=== PATIENT | female | born 1955 | race Two or more races ===

== ENCOUNTER 2020-11-19 02:18 | Emergency (ER) | payer OTHER ==
[~2020-11-19] VITALS: Ht 167.6 cm; Wt 108.9 kg
[2020-11-19] MEDS ORDERED: DEXTROSE 50%-WATER 50 ML DISP.SYRIN ONE (02:26)
[2020-11-19] MEDS ORDERED: DEXTROSE 50%-WATER 50 ML DISP.SYRIN IVP ONE (02:30)
[2020-11-19 02:48] LABS: BASOPHILS % (AUTO) 0.9 % (0.0-2.0); EOSINOPHILS % (AUTO) 3.6 % (0.0-6.0); HEMATOCRIT 36 % (33-45); HEMOGLOBIN 11.5 g/dL (11.5-14.8); LYMPHOCYTES % (AUTO) 17.7 % (20.0-44.0); MEAN CORPUSCULAR HGB CONC 32 g/dl (31.0-36.0); MEAN CORPUSCULAR VOLUME 90 fL (82-100); MONOCYTES # (AUTO) 0.5 /CMM (0.1-1.30); MONOCYTES % (AUTO) 8.6 % (2.0-12.0); NEUTROPHILS # (AUTO) 3.8 /CMM (1.8-8.9); NEUTROPHILS % (AUTO) 69.2 % (43.0-81.0); PLATELET COUNT (AUTO) 136 /CMM (150-450); RED BLOOD CELL COUNT(AUTO) 3.95 MIL/uL (4.0-5.2); WHITE BLOOD COUNT (AUTO) 5.5 K/uL (4.3-11.0)
[2020-11-19 03:04] LABS: ALBUMIN 3.4 g/dL (3.4-5.0); BILIRUBIN,DIRECT 0.1 mg/dL (0.0-0.2); BILIRUBIN,TOTAL 0.8 mg/dL (0.2-1.0); CALCIUM, SERUM 7.9 mg/dL (8.5-10.1); CREATININE 6.6 mg/dL (0.6-1.3); POTASSIUM 5.7 mmol/L (3.5-5.1)
--- NOTE | 2020-11-19 04:34 | NUR ---
called [facility]; rescheduled dialysis seat time @5:20pm today; will call [facility] for transport
--- NOTE | 2020-11-19 04:55 | NUR ---
[id number] HOME. ETA WILL CALL BACK DIALYSIS TRANSPORT PU 1700 @HOME FOR 1720 APPOINTMENT. DAUGHTER CHRISTINA AWARE HOME ADDRESS [id number] [id number]
--- NOTE | 2020-11-19 05:02 | NUR ---
[facility]. 30MINS ETA
--- NOTE | 2020-11-19 05:39 | NUR ---
Pt left via private ambulance to home. left in stable condition, not in any distress, VSS. report given to staff
[2020-11-19 05:41] VITALS: BP 143/71
== END 2020-11-19 05:42 | disposition home or self-care (01) ==
LOC: ER 02:20
DX: E11.649 Type 2 diabetes mellitus with hypoglycemia without coma (principal); I12.0 Hypertensive chronic kidney disease with stage 5 chronic kidney disease or end stage renal disease; E11.22 Type 2 diabetes mellitus with diabetic chronic kidney disease; N18.6 End stage renal disease; J90 Pleural effusion, not elsewhere classified; Z99.2 Dependence on renal dialysis; Z98.890 Other specified postprocedural states; Z88.0 Allergy status to penicillin; Z91.013 Allergy to seafood
CPT/HCPCS: 36415; 71045-TC; 80048-TC; 80076-TC; 82962-TC; 83690-TC; 85025-TC

== ENCOUNTER 2021-01-05 13:45 | Emergency (ER) | payer OTHER ==
[~2021-01-05] VITALS: Ht 167.6 cm; Wt 114.8 kg
--- NOTE | 2021-01-05 14:00 | NUR ---
ALEXIS FROM HOME TO ER BED 7. AAOX4. NOT IN RESP DISTRESS, BREATHING EVEN AND UNLABORED AND ON 02 VIA NC @ 4LPM SATTING @ 97%. PT WAS BROUGHT IN FOR SOB. PT WAS NOTED SATTING @ 77% ON RA UPON EMS ARRIVAL. PT REPORTS TO BE ON O2 AT HOME BASELINE @ 2LPM. PT IS ON DIALYSIS AND REPORT IT FEELS THE SAME WHEN SHE HAVE FLUID IN HIS LUNGS. PT ON MONITOR. AWAITING MD FOR EVAL.
[2021-01-05 15:17] LABS: BASOPHILS % (AUTO) 0.7 % (0.0-2.0); EOSINOPHILS % (AUTO) 1.1 % (0.0-6.0); HEMATOCRIT 32 % (33-45); HEMOGLOBIN 10.4 g/dL (11.5-14.8); LYMPHOCYTES # (AUTO) 0.6 /CMM (0.8-4.8); LYMPHOCYTES % (AUTO) 10.8 % (20.0-44.0); MEAN CORPUSCULAR HGB CONC 32 g/dl (31.0-36.0); MEAN CORPUSCULAR VOLUME 92 fL (82-100); MONOCYTES # (AUTO) 0.3 /CMM (0.1-1.30); MONOCYTES % (AUTO) 4.6 % (2.0-12.0); NEUTROPHILS % (AUTO) 82.8 % (43.0-81.0); PLATELET COUNT (AUTO) 175 /CMM (150-450); RED BLOOD CELL COUNT(AUTO) 3.53 MIL/uL (4.0-5.2)
[2021-01-05 15:26] LABS: CALCIUM, SERUM 8.3 mg/dL (8.5-10.1); CARBON DIOXIDE 26 mmol/L (21-32); CHLORIDE 105 mmol/L (98-107); CREATININE 5.3 mg/dL (0.6-1.3); GLUCOSE 155 mg/dL (74-106); POTASSIUM 5.6 mmol/L (3.5-5.1); SODIUM SERUM 140 mmol/L (136-145); UREA NITROGEN, BLOOD 22 mg/dL (7-18)
[2021-01-05 15:32] LABS: ALANINE AMINOTRANSFERASE 7 U/L (12-78); ALBUMIN 3.6 g/dL (3.4-5.0); ALKALINE PHOSPHATASE 71 U/L (46-116); ASPARTATE AMINOTRANSFERASE 12 U/L (15-37); BILIRUBIN,DIRECT 0.1 mg/dL (0.0-0.2); BILIRUBIN,TOTAL 0.8 mg/dL (0.2-1.0); TOTAL PROTEIN, SERUM 7.2 g/dL (6.4-8.2)
[2021-01-05] MEDS ORDERED: LEVO200T8 PO (15:40)
[2021-01-05] MEDS ORDERED: PROP20TA19 PO (15:40)
[2021-01-05] MEDS ORDERED: INSU100I4 SQ (15:40)
[2021-01-05] MEDS ORDERED: CHOL200013 PO (15:40)
[2021-01-05] MEDS ORDERED: INSU100I26 SQ (15:40)
[2021-01-05] MEDS ORDERED: AMLO-213 PO (15:40)
[2021-01-05] MEDS ORDERED: CARB1TAB21 PO (15:40)
--- NOTE | 2021-01-05 16:21 | NUR ---
Patient discharged to home in stable condition. Written and verbal after care instructions given. Patient verbalizes understanding of instruction.IV removed. Catheter intact and site benign. Pressure and 4x4 applied to site. No bleeding noted. Pt ambulatory with a steady gait
[2021-01-05 16:46] VITALS: BP 172/91
== END 2021-01-05 16:21 | disposition home or self-care (01) ==
LOC: ER 13:47
DX: J90 Pleural effusion, not elsewhere classified (principal); I12.0 Hypertensive chronic kidney disease with stage 5 chronic kidney disease or end stage renal disease; E11.22 Type 2 diabetes mellitus with diabetic chronic kidney disease; N18.6 End stage renal disease; E89.0 Postprocedural hypothyroidism; Z99.2 Dependence on renal dialysis; Z88.0 Allergy status to penicillin; Z91.013 Allergy to seafood; Z79.4 Long term (current) use of insulin; Z79.899 Other long term (current) drug therapy
CPT/HCPCS: 36415; 71045-TC; 80048-TC; 80076-TC; 84484-TC; 85025-TC; 85730-TC

== ENCOUNTER 2021-04-03 10:08 | Emergency (ER) | payer MEDICARE, OTHER ==
[~2021-04-03] VITALS: Ht 172.7 cm; Wt 102.1 kg
[~2021-04-03 10:08] MED LIST: AMLO-213 PO; CARB1TAB21 PO; CHOL200013 PO; INSU100I26 SQ; INSU100I4 SQ; LEVO200T8 PO; PROP20TA19 PO
--- NOTE | 2021-04-03 10:45 | NUR ---
[id number] [facility] SNF FOR NOTED HYPERTENSION S/P DIALYSIS. ALERT TO SELF. ON ROOM AIR, O SOB RESPIRATIONS EVEN AND UNLABORED NO DISTRESS NOTED. PATIENT ATTACHED TO MONITOR AND WILL CONTINUE TO MONITOR, WARM BLANKET PROVIDED.
[2021-04-03 10:57] LABS: BASOPHILS # (AUTO) 0.1 K/uL (0.0-0.2); BASOPHILS % (AUTO) 0.8 % (0.0-2.0); EOSINOPHILS % (AUTO) 2.1 % (0.0-6.0); HEMATOCRIT 21 % (33-45); LYMPHOCYTES % (AUTO) 8.1 % (20.0-44.0); MEAN CORPUSCULAR HGB CONC 32 g/dl (31.0-36.0); MEAN CORPUSCULAR VOLUME 88 fL (82-100); MONOCYTES # (AUTO) 0.8 K/uL (0.1-1.30); MONOCYTES % (AUTO) 6.5 % (2.0-12.0); NEUTROPHILS # (AUTO) 9.9 K/uL (1.8-8.9); NEUTROPHILS % (AUTO) 82.5 % (43.0-81.0); PLATELET COUNT (AUTO) 268 K/uL (150-450); RED BLOOD CELL COUNT(AUTO) 2.41 MIL/uL (4.0-5.2)
[2021-04-03 10:58] LABS: CARBON DIOXIDE 30 mmol/L (21-32); CHLORIDE 99 mmol/L (98-107); CREATININE 2.4 mg/dL (0.6-1.3); GLUCOSE 152 mg/dL (74-106); POTASSIUM 3.8 mmol/L (3.5-5.1); SODIUM SERUM 135 mmol/L (136-145); UREA NITROGEN, BLOOD 34 mg/dL (7-18)
[2021-04-03 11:00] LABS: HEMOGLOBIN 6.9 g/dL (11.5-14.8)
[2021-04-03 11:03] LABS: ALBUMIN 1.5 g/dL (3.4-5.0); ALKALINE PHOSPHATASE 120 U/L (46-116); ASPARTATE AMINOTRANSFERASE 29 U/L (15-37); BILIRUBIN,DIRECT 0.1 mg/dL (0.0-0.2); BILIRUBIN,TOTAL 0.4 mg/dL (0.2-1.0); TOTAL PROTEIN, SERUM 6.4 g/dL (6.4-8.2)
--- NOTE | 2021-04-03 11:14 | NUR ---
PER NURSE MONTANEZ FROM [facility] THE PATIENT`S LAST HGB WAS 8.1 OF 03/26/21. DR CRAMER AWARE. Addendum: 04/03/21 at 1116 by MICHAEL ASKED THE NURSE TO FAX THE COPY
--- NOTE | 2021-04-03 11:18 | NUR ---
THE PATIENT`S NEPHRO MD IS DR COHN [phone]
--- NOTE | 2021-04-03 11:22 | NUR ---
PAGED DR COHN
[2021-04-03 11:27] LABS: ALANINE AMINOTRANSFERASE < 6 U/L (12-78)
[2021-04-03 11:37] LABS: LYMPHOCYTES % (MANUAL) 8 % (16-48); MONOCYTES % (MANUAL) 7 % (0-11.0); NEUTROPHILS % (MANUAL) 85 (42-76)
--- NOTE | 2021-04-03 16:00 | NUR ---
STARTED BLOOD TRANSFUSION PER POLICY AND ORDER
--- NOTE | 2021-04-03 16:01 | NUR ---
THE PATIENT IS TOLERATED BLOOD TRANSFUSION WELL. NO ADVERSE SIDE REACTIONS NOTED. WILL CONTINUE TO MONITOR THE PATIENT.
--- NOTE | 2021-04-03 19:01 | NUR ---
BLOOD TRANSFUSION COMPLETE WITH NO ADVERSE REACTIONS NOTED. Addendum: 04/03/[address] GENNY CORADO
--- NOTE | 2021-04-03 20:06 | NUR ---
[facility] ETA 2100
[2021-04-03] MEDS ORDERED: LABETALOL HCL (100MG) 100 MG TABLET ONE (20:18)
--- NOTE | 2021-04-03 20:22 | NUR ---
SPOKE TO NURSE ALIE SNELL FROM [facility] REGARDING PT BEING TRANSFERED BACK TO FACILITY.
[2021-04-03] MEDS ORDERED: LABETALOL HCL (100MG) 100 MG TABLET GT ONE (20:30)
--- NOTE | 2021-04-03 21:12 | NUR ---
Lalita rebolledo in [facility] - 04/03/21 at 2234 by TITA REPORT GIVEN TO EMT, PT WILL BE TRANSFERED BACK TO FACILITY.
--- NOTE | 2021-04-03 21:22 | NUR ---
[facility] CALLED FOR TRANSPORT. ETA 90 MINUTES.
--- NOTE | 2021-04-03 22:31 | NUR ---
REPORT GIVEN TO EMT, PT TRANSFERED BACK TO FACILITY.
[2021-04-03 22:34] VITALS: BP 143/79
== END 2021-04-03 22:35 ==
LOC: ER 10:20
DX: I12.0 Hypertensive chronic kidney disease with stage 5 chronic kidney disease or end stage renal disease (principal); E11.22 Type 2 diabetes mellitus with diabetic chronic kidney disease; N18.6 End stage renal disease; D63.1 Anemia in chronic kidney disease; G20 Parkinson's disease; E89.0 Postprocedural hypothyroidism; Z99.2 Dependence on renal dialysis; Z88.0 Allergy status to penicillin; Z91.013 Allergy to seafood; Z79.899 Other long term (current) drug therapy; Z79.4 Long term (current) use of insulin
CPT/HCPCS: 36415; 36430; 70450; 71045; 80048; 80076; 84484; 85007; 85025; 86850; 86923; 93005; 99285; J7050; P9016

== ENCOUNTER 2021-04-08 17:04 | Inpatient (IN) | payer MEDICARE, OTHER ==
[~2021-04-08] VITALS: Ht 172.7 cm; Wt 98.0 kg
[~2021-04-08 17:04] MED LIST changes: +AMLO-213 GT; -AMLO-213 PO; +CARB1TAB21 GT; -CARB1TAB21 PO; +LEVO200T8 GT; -LEVO200T8 PO
--- NOTE | 2021-04-08 17:22 | NUR ---
Note undone in EDM - 04/08/21 at 1852 by MICHAEL The patient is irene, from [facility], sent by PMD low h/h 6.8/20.3. The patient is responsive to tactile stimuli and per report from ambulance staff that is the patient`s baseline mental status. The patient in room air. Respiration regular and unlabored. No manifestation of pain noted. GT present. The patient is attached to monitor. Will continue to monitor the patient.
--- NOTE | 2021-04-08 17:22 | NUR ---
The patient is bibpa, from snf, sent by PMD low h/h 6.8/20.3. The patient is responsive to tactile stimuli and per report from ambulance staff that is the patient`s baseline mental status. The patient is receiving oxygen at 3.5L/min via nasal cannula. Respiration regular and unlabored. No manifestation of pain noted. GT present. The patient is attached to monitor. Will continue to monitor the patient.
[2021-04-08 17:50] LABS: BASOPHILS # (AUTO) 0.2 K/uL (0.0-0.2); BASOPHILS % (AUTO) 1.3 % (0.0-2.0); EOSINOPHILS % (AUTO) 2.8 % (0.0-6.0); HEMATOCRIT 23 % (33-45); HEMOGLOBIN 7.6 g/dL (11.5-14.8); LYMPHOCYTES # (AUTO) 1.3 K/uL (0.8-4.8); MEAN CORPUSCULAR HGB CONC 33 g/dl (31.0-36.0); MEAN CORPUSCULAR VOLUME 90 fL (82-100); MONOCYTES # (AUTO) 0.7 K/uL (0.1-1.30); MONOCYTES % (AUTO) 5.1 % (2.0-12.0); NEUTROPHILS # (AUTO) 11.7 K/uL (1.8-8.9); NEUTROPHILS % (AUTO) 81.8 % (43.0-81.0); PLATELET COUNT (AUTO) 252 K/uL (150-450); RED BLOOD CELL COUNT(AUTO) 2.55 MIL/uL (4.0-5.2); WHITE BLOOD COUNT (AUTO) 14.3 K/uL (4.3-11.0)
[2021-04-08] MEDS ORDERED: VALP250S22 GT (17:54)
[2021-04-08] MEDS ORDERED: LISI40TA13 GT (17:54)
[2021-04-08] MEDS ORDERED: COLL30OI TP (17:54)
[2021-04-08] MEDS ORDERED: ZINC1CAP3 GT (17:54)
[2021-04-08] MEDS ORDERED: AMIN30LI27 GT (17:54)
[2021-04-08] MEDS ORDERED: INSU100V27 SQ (17:54)
[2021-04-08] MEDS ORDERED: ACET-868 GT ×2 (17:54)
[2021-04-08] MEDS ORDERED: LINA5TAB GT (17:54)
[2021-04-08] MEDS ORDERED: CALC0.258 GT (17:54)
[2021-04-08] MEDS ORDERED: TRIH2TAB3 GT (17:54)
[2021-04-08] MEDS ORDERED: BROM2.5T15 GT (17:54)
[2021-04-08] MEDS ORDERED: PHEN125O9 GT (17:54)
[2021-04-08] MEDS ORDERED: HEPA50007 SQ (17:54)
[2021-04-08] MEDS ORDERED: NIFE30TA91 GT (17:54)
[2021-04-08] MEDS ORDERED: LIOT5TAB7 GT (17:54)
[2021-04-08] MEDS ORDERED: POLY17PO4 GT (17:54)
[2021-04-08] MEDS ORDERED: CLON0.2T GT (17:54)
[2021-04-08] MEDS ORDERED: ASCO-352 GT (17:54)
[2021-04-08] MEDS ORDERED: NUT.237L67 GT (17:54)
[2021-04-08] MEDS ORDERED: ATOR10TA GT (17:54)
[2021-04-08] MEDS ORDERED: LABE300T2 GT (17:54)
[2021-04-08] MEDS ORDERED: BISA10SU11 RC (17:54)
[2021-04-08] MEDS ORDERED: MINO2.5T GT (17:54)
[2021-04-08] MEDS ORDERED: HYDR-4303 GT (17:54)
[2021-04-08] MEDS ORDERED: CALC-903 GT (17:54)
[2021-04-08] MEDS ORDERED: MULT-447 PO (17:54)
[2021-04-08] MEDS ORDERED: SENN-261 GT (17:54)
[2021-04-08 18:23] LABS: CALCIUM, SERUM 8.3 mg/dL (8.5-10.1); CREATININE 2.4 mg/dL (0.6-1.3)
[2021-04-08 18:38] LABS: ALBUMIN 1.7 g/dL (3.4-5.0); BILIRUBIN,DIRECT 0.1 mg/dL (0.0-0.2); BILIRUBIN,TOTAL 0.4 mg/dL (0.2-1.0); TOTAL PROTEIN, SERUM 6.8 g/dL (6.4-8.2)
--- NOTE | 2021-04-08 18:53 | NUR ---
THE PATIENT`S OXYGEN SATURATION IN ROOM AIR IS AT 85%. SO IN ORDER TO MAINTAIN OXYGEN SATURATION WNL THE PATIENT IS KEPT ON OXYGEN AT 3.5L/MIN VIA NASAL CANNULA.
--- NOTE | 2021-04-08 19:20 | NUR ---
PER PATIENT DTR CHRISTINA CRUZ OVER PHONE CONSENT FOR BLOOD TRANSFUISON.
--- NOTE | 2021-04-08 19:55 | NUR ---
BLOOD TRANSFUSION STARTED. PATIENT VSS, PATIENT CONNECTED TO MONITORS.
--- NOTE | 2021-04-08 20:49 | NUR ---
tele 120
[2021-04-08] MEDS ORDERED: MAG HYDROX/AL HYDROX/SIMETH 30 ML UDC PO PRN (21:00)
[2021-04-08] MEDS ORDERED: Z GUARD REMEDY 2 OZ OINT TP PRN (21:00)
[2021-04-08] MEDS ORDERED: ONDANSETRON HCL/PF 4 MG/2 ML VIAL IVP PRN (21:00)
[2021-04-08] MEDS ORDERED: ACETAMINOPHEN 325 MG TABLET PO PRN (21:00)
[2021-04-08] MEDS ORDERED: ZOLPIDEM TARTRATE 5 MG TABLET PO PRN (21:00)
[2021-04-08] MEDS ORDERED: MAGNESIUM HYDROXIDE 30 ML UDC PO PRN (21:00)
--- NOTE | 2021-04-08 21:00 | NUR ---
REPORT GIVEN TO EDISNO RADER. WILL TRANSPORT PT VIA ACLS PROTOCOL.
[2021-04-08 21:20] VITALS: BP 113/42
--- NOTE | 2021-04-08 21:33 | NUR ---
PATIENT TRANSFERRED UNDER ACLS
[2021-04-08 22:50] VITALS: BP 127/40
--- NOTE | 2021-04-08 22:50 | NUR ---
S/P BLOOD TRANSFUSION, ENDED AT THIS TIME. NO ADVERSE EFFECTS NOTED. VITAL SIGNS STABLE. CALL LIGHT WITHIN REACH.
[2021-04-09] VITALS: BP 149/63
--- NOTE | 2021-04-09 01:23 | NUR ---
ADMIT NOTE RECEIVED PATIENT FROM ER, TRANSFERRED TO ROOM 120-2. PATIENT IS ALERT AND ORIENTED X1-2, LETHARGIC. EASILY AROUSED. ON O2 3L VIA NASAL CANNULA, O2 SAT 100%. NO SIGNS OF ANY ACUTE RESPIRATORY DISTRESS. DENIES ANY PAIN AT THIS TIME. ONGOING 1 UNIT BLOOD TRANSFUSION, IV ACCESS RIGHT WRIST # 20 PATENT AND INTACT. NO SIGNS OF INFILTRATION. WITH G-TUBE, CLAMPED AT THIS TIME, POSITIVE PLACEMENT VIA AUSCULTATION. SKIN ASSESSMENT DONE, NOTED WITH SACRAL EXCORIATION, OLD WOUNDS/SCABS ON RIGHT AND LEFT GROIN, BILATERAL HEEL REDNESS. DIALYSIS SITE ON RIGHT UPPER CHEST WALL, DRESSING DRY AND INTACT. BED LOCKED AND IN LOWEST POSITION. CALL LIGHT WITHIN REACH. ALL NEEDS ANTICIPATED. Addendum: 04/09/21 at 0128 by TERESA BARRON RN PATIENT ADMITTED AT 2120 04/08/21
[2021-04-09 04:00] VITALS: BP 121/83
[2021-04-09] MEDS ORDERED: NEPRO 1,000 ML BOTTLE GT PRN (05:30)
--- NOTE | 2021-04-09 06:58 | NUR ---
RN NOTE PATIENT RESTING IN BED. ON 3L VIA NASAL CANNULA, O2 SAT 96%. NO SOB NOTED. TURNED AND REPOSITIONED. KEPT CLEAN AND DRY. SAFETY MEASURES MAINTAINED. CALL LIGHT WITHIN REACH. WILL ENDORSE TO AM SHIFT.
[2021-04-09 07:20] LABS: CALCIUM, SERUM 8.3 mg/dL (8.5-10.1); MAGNESIUM 2.4 mg/dL (1.8-2.4); PHOSPHORUS 2.3 mg/dL (2.5-4.9); POTASSIUM 4.1 mmol/L (3.5-5.1)
[2021-04-09] MEDS ORDERED: PANTOPRAZOLE 40 MG TABLET.DR PO SCH (07:30)
--- NOTE | 2021-04-09 07:30 | NUR ---
RN NOTE PT FOUND IN SEMI FOWLERS POSITION DISPLAYING NO S/S OF ACUTE DISTRESS, PT IS BREATHING EVEN AND UNLABORED ON 3L NC O2 AND FLACC = 0. PT IS CONFUSED, A&OX1-2. SR ON THE MONITOR. R WRIST 20G, IV PATIENT AND INTACT. HOSPITAL SAFETY IN PLACE, BED LOCKED AND IN LOWEST POSITION, SIDE RAILS UPX3, CALL LIGHT WITHIN REACH, BED ALARM ARMED.
[2021-04-09 07:36] LABS: THYROID STIMULATING HORMONE 55.417 uIU/mL (0.358-3.74)
[2021-04-09 08:00] VITALS: BP 100/41
[2021-04-09 08:28] LABS: BASOPHILS # (AUTO) 0.2 K/uL (0.0-0.2); BASOPHILS % (AUTO) 1.4 % (0.0-2.0); EOSINOPHILS % (AUTO) 2.9 % (0.0-6.0); HEMATOCRIT 26 % (33-45); HEMOGLOBIN 8.7 g/dL (11.5-14.8); LYMPHOCYTES # (AUTO) 1.5 K/uL (0.8-4.8); LYMPHOCYTES % (AUTO) 8.5 % (20.0-44.0); MEAN CORPUSCULAR HGB CONC 33 g/dl (31.0-36.0); MEAN CORPUSCULAR VOLUME 91 fL (82-100); MONOCYTES % (AUTO) 5.6 % (2.0-12.0); NEUTROPHILS % (AUTO) 81.6 % (43.0-81.0); PLATELET COUNT (AUTO) 283 K/uL (150-450); RED BLOOD CELL COUNT(AUTO) 2.87 MIL/uL (4.0-5.2); WHITE BLOOD COUNT (AUTO) 17.2 K/uL (4.3-11.0)
[2021-04-09] MEDS: PROSOURCE / PROSTAT (PYXIS) 30 ML UDC GT SCH ×2 (10:30→17:00)
--- NOTE | 2021-04-09 10:53 | NUR ---
RN NOTE OKAY PER [employer]GY LABORATORY TECHNICIAN SHANNON ZAYAS TO HOLD GTUBE FEEDING AND GTUBE MEDICATIONS DUE TO GTUBE LEAKING.
--- NOTE | 2021-04-09 11:42 | NUR ---
WOUND CARE CONSULT: REVIEWED CHART, NURSING DOCUMENTATION AND PHOTOS WHICH INDICATE SACRAL WOUND, PRESENT ON ADMISSION. DR BEJARANO NOTIFIED OF SURGICAL CONSULT. PT IS ON BARBARA ISOFLEX LOW AIRLOSS BED. ALL SKIN PROTECTION RECOMMENDATIONS DISCUSSED WITH NURSING STAFF. MD IN AGREEMENT WITH PLAN OF CARE.
[2021-04-09 12:00] VITALS: BP 105/52
[2021-04-09] MEDS ORDERED: Sodium Phosphate 15 MMOL in IV NS 0.9% 250 ML IV SCH (13:30)
[2021-04-09] MEDS: PANTOPRAZOLE 40 MG VIAL IV SCH (14:17)
[2021-04-09] MEDS ORDERED: Sodium Phosphate 15 MMOL in IV NS 0.9% 250 ML IV ONE (14:19)
[2021-04-09] MEDS ORDERED: VANCOMYCIN 500 MG in IV D5W 100 ML IV PRN (14:30)
[2021-04-09] MEDS ORDERED: DIATR MEGLU/DIATRIZOATE SODIUM 30 ML BOTTLE (GASTROGRAPHIN) ONE (14:37)
[2021-04-09] MEDS ORDERED: VANCOMYCIN 1.25 GM in IV D5W 250 ML IV ONE (15:00)
[2021-04-09 16:00] VITALS: BP 114/59
[2021-04-09 16:25] LABS: BILIRUBIN,URINE SMALL (NEGATIVE); COLOR,URINE DARK YELLOW (YELLOW); LEUKOCYTE ESTERASE ,URINE TRACE (NEGATIVE); NITRITE, URINE POSITIVE (NEGATIVE); PROTEIN,URINE >=300 mg/dl (NEGATIVE); UGLUCOSE 100 MG/DL mg/dL (NEGATIVE)
[2021-04-09 16:37] LABS: BACTERIA,URINE Many /HPF (None Seen); SQUAMOUS EPITHELIAL CELL,UR Moderate /HPF (None Seen); URINE AMORPHOUS URATE Many /HPF (None Seen)
[2021-04-09 17:10] LABS: CREATININE, URINE 83.1 MG/DL (30.0-125.0); URINE TOTAL PROTEIN 671.8 mg/dL (0-11.9)
[2021-04-09] MEDS: CEFEPIME 1 GM in IV D5W 50 ML IV SCH (17:27)
[2021-04-09] MEDS ORDERED: LEVOTHYROXINE SODIUM 100 MCG TABLET PO SCH (17:30)
[2021-04-09] MEDS ORDERED: EPOETIN ALFA-EPBX 4,000 UNIT/ML VIAL IV PRN (17:30)
--- NOTE | 2021-04-09 19:15 | NUR ---
RN NOTE PT FOUND SEMI FOWLERS POSITION DISPLAYING NO S/S OF DISTRESS, FLACC = 0 AND IS BREATHING EVEN AND UNLABORED ON 2L O2 NC. PT IS A&OX1, SR W/ PVC ON THE MONITOR. R WRIST 20G PATIENT AND INTACT. SAFETY MEASURES IN PLACE, BED LOCKED AND IN LOWEST POSITION, SIDE RAILS UPX3, CALL LIGHT WITHIN REACH, BED ALARM ARMED. BARREL LOADER AND CLEANER RN GIVEN SBAR, ALL QUESTIONS ANSWERED.
--- NOTE | 2021-04-09 19:30 | NUR ---
RN OPENING NOTE PATIENT IN BED, EYES OPEN. PATIENT IS SLOW TO RESPOND, A/O X 1. PATIENT HAS A G TUBE PRESENT, CLAMPED D/T GT BEING INFECTED. PER ANSELMO RN, PATIENT IS NPO AND GT TO REMAIN CLAMPED. PATIENT HAS A PERMACATH ON THE R CHEST WALL FOR HD AND HAS A R WRIST 20 G SALINE LOCKED. PATIENT ON 3 L OF O2 VIA NC, TOLERATES WELL, BREATHING EVEN AND UNLABORED. SAFETY MEASURES IN PLACE: BED LOCKED AND IN LOWEST POSITION, CALL LIGHT WITHIN REACH, SIDE RAILS UP. WILL MONITOR PATIENT CLOSELY.
[2021-04-09 20:00] VITALS: BP 136/45
--- NOTE | 2021-04-09 21:10 | NUR ---
RN NOTE SPOKE WITH DR. MUSA REGARDING PATIENT'S NPO STATUS AND PATIENT DID NOT HAVE ACCUCHECK ORDERED, HX DM, WELL MED RECON CONVERTED. ALSO ASKED ABOUT HAVING PATIENT ON FLUID AND INFORMED OF PATIENT'S DIALYSIS AND CHF HX. MD ORDERED ACCUCHECK Q6HR AND MONITOR PATIENT OFF FLUID. FOR MED RECON, STATES THAT IT WOULD HAVE TO BE FOLLOWED UP WITH AM TEAM.
[2021-04-09] MEDS ORDERED: DEXTROSE 50%-WATER 50 ML DISP.SYRIN IV PRN (21:30)
[2021-04-09] MEDS: BLOOD SUGAR DIAGNOSTIC 1 EACH STRIP IN SCH (23:50)
--- NOTE | 2021-04-09 23:51 | NUR ---
RN NOTE BS 120 MG/DL. NO COVERAGE GIVEN, PATIENT NPO. WILL CONTINUE TO MONITOR FOR HYPOGLYCEMIA.
[2021-04-10] VITALS: BP 105/57
[2021-04-10 04:00] VITALS: BP 145/60
[2021-04-10] MEDS: BLOOD SUGAR DIAGNOSTIC 1 EACH STRIP IN SCH ×3 (05:45→17:19)
--- NOTE | 2021-04-10 05:45 | NUR ---
RN NOTE BS 132 MG/DL. NO COVERAGE GIVEN, PATIENT NPO. WILL CONTINUE TO MONITOR FOR HYPOGLYCEMIA.
--- NOTE | 2021-04-10 06:59 | NUR ---
RN CLOSING NOTE PATIENT IN BED, EYES CLOSED. PATIENT IS A/O X 1-2. PATIENT HAS SLOW RESPONSES WHEN SPEAKING WITH. STILL ON 3 L OF 02 VIA NC. PATIENT'S G TUBE REMAINED CLAMPED, G TUBE DRESSING CHANGED. TELE MONITOR READS SR 88 WITH PVCS. PATIENT HAS NO URINE OUTPUT, ANURIC. SAFETY MEASURES IMPLEMENTED. ALL ORDERS CARRIED OUT, ALL NEEDS MET AND ATTENDED. R WRIST 20 G SALINE LOCKED. WILL ENDORSE TO DAY SHIFT NURSE FOR ADEEL.
[2021-04-10 07:29] LABS: BASOPHILS # (AUTO) 0.1 K/uL (0.0-0.2); BASOPHILS % (AUTO) 0.9 % (0.0-2.0); HEMATOCRIT 24 % (33-45); HEMOGLOBIN 8.1 g/dL (11.5-14.8); LYMPHOCYTES # (AUTO) 1.2 K/uL (0.8-4.8); LYMPHOCYTES % (AUTO) 11.6 % (20.0-44.0); MEAN CORPUSCULAR HGB CONC 34 g/dl (31.0-36.0); MEAN CORPUSCULAR VOLUME 91 fL (82-100); MONOCYTES # (AUTO) 0.7 K/uL (0.1-1.30); MONOCYTES % (AUTO) 6.4 % (2.0-12.0); NEUTROPHILS # (AUTO) 7.8 K/uL (1.8-8.9); NEUTROPHILS % (AUTO) 76.1 % (43.0-81.0); PLATELET COUNT (AUTO) 235 K/uL (150-450); WHITE BLOOD COUNT (AUTO) 10.3 K/uL (4.3-11.0)
[2021-04-10 07:32] LABS: CALCIUM, SERUM 7.9 mg/dL (8.5-10.1); CREATININE 3.8 mg/dL (0.6-1.3)
[2021-04-10 07:38] LABS: MAGNESIUM 2.5 mg/dL (1.8-2.4); PHOSPHORUS 2.3 mg/dL (2.5-4.9)
[2021-04-10 08:00] VITALS: BP 115/47
[2021-04-10] MEDS: PROSOURCE / PROSTAT (PYXIS) 30 ML UDC GT SCH ×2 (09:00→17:16)
--- NOTE | 2021-04-10 09:14 | NUR ---
RN NOTE GT IS CLAMPED DUE TO LEAKING - DID NOT ADMINISTER PROSTAT
[2021-04-10] MEDS: LEVOTHYROXINE INJ 100 MCG VIAL IV SCH (09:16)
[2021-04-10 12:19] VITALS: BP 161/70
[2021-04-10] MEDS: PANTOPRAZOLE 40 MG VIAL IV SCH (14:00)
--- NOTE | 2021-04-10 14:00 | NUR ---
PATIENT POOR PERIPHERAL IV AWAITS MIDLINE PER MD.
[2021-04-10 16:00] VITALS: BP 146/89
[2021-04-10] MEDS ORDERED: Sodium Phosphate 30 MMOL in IV NS 0.9% 250 ML IV ONE (16:30)
[2021-04-10] MEDS: CEFEPIME 1 GM in IV D5W 50 ML IV SCH (17:19)
--- NOTE | 2021-04-10 19:40 | NUR ---
RN NOTE PT RECEIVED IN BED. PT IS ON 3L OF O2 VIA NC SHOWING NO S/S OF RESP DISTRESS. PT IS A&OX1-2. PT ON TELE MONITOR SHOWING NSR WITH PVC'S. G-TUBE FEEDING RUNNING NEPRO @ 10CC/HR WITH TRICKLE DOSE TO SEE IF PATIENT CAN TOLERATE. LEFT UPPER ARM MIDLINE NOTED. FLUSHED, PATENT, AND INTACT WITH NO SIGNS OF INFILTRATION. ALL SAFETY MEASURES IMPLEMENTED. CALL LIGHT WITHIN REACH. BED ALARM ON. BED LOCKED AND IN LOWEST POSITION. WILL CONTINUE TO MONITOR THROUGHOUT THE SHIFT.
--- NOTE | 2021-04-10 19:45 | NUR ---
NETWORK SECURITY CONSULTANT CLOSING NOTE PATIENT CURRENTLY LYING IN BED, AWAKE. PATIENT IS A/O X 2-3. ORIENTED MUCH MORE THAN THIS MORNING - WAS ABLE TO FULLY CONVERSATE WITH ME. ON 3 L OXYGEN VIA NASAL CANNULA. GTUBE WOUND NOTED - GAUZE DRESSING CHANGED. TF RUNNING NEPRO @ 10CC/HR WITH TRICKLE DOSE TO SEE IF PATIENT CAN TOLERATE. TELE MONITOR READS SR WITH PVCS. PATIENT IS ANURIC. SAFETY MEASURES IN PLACE. CALL LIGHT WITHIN REACH. WILL ENDORSE TO BUCKLE STAPLER NURSE FOR ADEEL.
[2021-04-10 20:00] VITALS: BP 145/74
--- NOTE | 2021-04-10 20:53 | NUR ---
RN NOTE PT RECEIVED DIALYSIS DURING MORNING SHIFT. VANCOMYCIN NOT GIVEN. COSMETIC DENTIST JEYSON AND SAGE MADE AWARE. OK TO GIVE.
[2021-04-11] VITALS: BP 140/74
[2021-04-11] MEDS: BLOOD SUGAR DIAGNOSTIC 1 EACH STRIP IN SCH ×4 (00:38→18:27)
[2021-04-11 04:00] VITALS: BP 104/49
--- NOTE | 2021-04-11 06:48 | NUR ---
RN NOTE NO CHANGES IN PT CONDITION DURING SHIFT. PT IS ON 3L OF VIA NC SHOWING NO S/S OF RESP DISTRESS. PT IS CURRENTLY A&OX1-2. SACRAL WOUND NOTED. NEPRO RUNNING AT 10 ML/HR. LEFT UPPER ARM MID LINE NOTED. FLUSHED, PATENT, AND INTACT WITH NO INFILTRATION. ALL DUE MEDS GIVEN ORDERED. PT KEPT CLEAN AND COMFORTABLE. ALL SAFETY MEASURES IMPLEMENTED. CALL LIGHT WITHIN REACH. BED LOCKED AND IN LOWEST POSITION. BED ALARM ON. WILL ENDORSE TO MORNING SHIFT RN FOR ADEEL.
[2021-04-11 07:09] LABS: BASOPHILS # (AUTO) 0.1 K/uL (0.0-0.2); BASOPHILS % (AUTO) 1.2 % (0.0-2.0); EOSINOPHILS % (AUTO) 5.4 % (0.0-6.0); HEMATOCRIT 25 % (33-45); HEMOGLOBIN 8.5 g/dL (11.5-14.8); LYMPHOCYTES # (AUTO) 1.1 K/uL (0.8-4.8); LYMPHOCYTES % (AUTO) 12.3 % (20.0-44.0); MEAN CORPUSCULAR HGB CONC 34 g/dl (31.0-36.0); MEAN CORPUSCULAR VOLUME 92 fL (82-100); MONOCYTES # (AUTO) 0.6 K/uL (0.1-1.30); MONOCYTES % (AUTO) 7.1 % (2.0-12.0); NEUTROPHILS # (AUTO) 6.5 K/uL (1.8-8.9); PLATELET COUNT (AUTO) 219 K/uL (150-450); RED BLOOD CELL COUNT(AUTO) 2.75 MIL/uL (4.0-5.2); WHITE BLOOD COUNT (AUTO) 8.8 K/uL (4.3-11.0)
[2021-04-11 07:16] LABS: CALCIUM, SERUM 7.6 mg/dL (8.5-10.1); CREATININE 3.1 mg/dL (0.6-1.3); MAGNESIUM 2.3 mg/dL (1.8-2.4); PHOSPHORUS 2.5 mg/dL (2.5-4.9); POTASSIUM 3.7 mmol/L (3.5-5.1)
[2021-04-11] MEDS: LEVOTHYROXINE INJ 100 MCG VIAL IV SCH (07:49)
[2021-04-11 08:00] VITALS: BP 111/57
--- NOTE | 2021-04-11 08:00 | NUR ---
RN OPENING NOTE PATIENT IN BED, SLEEPING. PATIENT IS A/OX1. PATIENT HAS G-TUBE RUNNING AT 10ML/HR DUE TO MINOR LEAK ON GTUBE WOUND. PATIENT HAS A LEFT MIDLINE PLACED WITH SUCCESSFUL FLUSH. PATIENT ON 3L OF O2. TOLERATES WELL AND IS BREATHING WELL AND UNLABORED. SAFETY MEASURES IN PLACE: BED LOCKED AND IN LOW POSITION. CALL LIGHT WITHIN REACH. SIDE RAILS UP. WILL CONTINUE TO MONITOR
[2021-04-11] MEDS: PROSOURCE / PROSTAT (PYXIS) 30 ML UDC GT SCH ×2 (08:57→17:35)
[2021-04-11] MEDS ORDERED: PANTOPRAZOLE 40 MG VIAL IV SCH (09:38)
[2021-04-11 12:00] VITALS: BP 147/72
[2021-04-11] MEDS ORDERED: LEVOFLOXACIN 500 MG /D5W 100ML 500 MG in PREMIX 1 EA IV SCH (12:00)
[2021-04-11] MEDS ORDERED: THERAHONEY GEL 1.5 OZ TUBE TP PRN (13:00)
[2021-04-11] MEDS: LEVOFLOXACIN 750 MG /D5W 150ML 750 MG in PREMIX 1 EA IV SCH ×2 (13:00→14:15)
[2021-04-11] MEDS: INSULIN REGULAR, HUMAN 100 UNIT/ML 3 ML VIAL SQ PRN ×2 (13:18→18:32)
--- NOTE | 2021-04-11 14:00 | NUR ---
coccyx dressing changed as ordered will continue to assess and evaluate
--- NOTE | 2021-04-11 15:45 | NUR ---
reports given by primary nurse elise [facility] by primary nurse
[2021-04-11 16:00] VITALS: BP 137/69
== END 2021-04-11 20:30 | DRG 393 ==
LOC: ER 17:08 → TELE1 20:51
PROVIDERS: ADMIT Student in an Organized Health Care Education/Training Program
PROC: 30233N1 Transfusion of Nonautologous Red Blood Cells into Peripheral Vein, Percutaneous Approach (ICD-10-PCS; principal; 2021-04-08)
PROC: 05HF33Z Insertion of Infusion Device into Left Cephalic Vein, Percutaneous Approach (ICD-10-PCS; 2021-04-10)
PROC: 5A1D70Z Performance of Urinary Filtration, Intermittent, Less than 6 Hours Per Day (ICD-10-PCS; 2021-04-10)
DX: K94.22 Gastrostomy infection (principal); A41.9 Sepsis, unspecified organism; E43 Unspecified severe protein-calorie malnutrition; N18.6 End stage renal disease; J15.9 Unspecified bacterial pneumonia; I13.2 Hypertensive heart and chronic kidney disease with heart failure and with stage 5 chronic kidney disease, or end stage renal disease; I50.32 Chronic diastolic (congestive) heart failure; L03.311 Cellulitis of abdominal wall; G93.40 Encephalopathy, unspecified; J98.11 Atelectasis; K94.23 Gastrostomy malfunction; Z99.2 Dependence on renal dialysis; E11.22 Type 2 diabetes mellitus with diabetic chronic kidney disease; Z79.4 Long term (current) use of insulin; I48.91 Unspecified atrial fibrillation; E89.0 Postprocedural hypothyroidism; Z20.822 Contact with and (suspected) exposure to COVID-19; G40.909 Epilepsy, unspecified, not intractable, without status epilepticus; D63.1 Anemia in chronic kidney disease; E78.5 Hyperlipidemia, unspecified; G20 Parkinson's disease; Z88.0 Allergy status to penicillin; Z91.013 Allergy to seafood; Z79.899 Other long term (current) drug therapy; Z79.01 Long term (current) use of anticoagulants; Y83.3 Surgical operation with formation of external stoma as the cause of abnormal reaction of the patient, or of later complication, without mention of misadventure at the time of the procedure; Y82.8 Other medical devices associated with adverse incidents; Y92.129 Unspecified place in nursing home as the place of occurrence of the external cause; B96.1 Klebsiella pneumoniae [K. pneumoniae] as the cause of diseases classified elsewhere; M89.9 Disorder of bone, unspecified; R09.02 Hypoxemia; R13.10 Dysphagia, unspecified; Y95 Nosocomial condition; Z79.890 Hormone replacement therapy
CPT/HCPCS: 36410; 36415; 71045-TC; 74018; 76770-TC; 80048-TC; 80061-TC; 80076-TC; 80202-TC; 81001; 82570-TC; 82962-TC; 83540-TC; 83605-TC; 83735-TC; 84100-TC; 84155-TC; 84300-TC; 84439-TC; 84443-TC; 84484-TC; 85025-TC; 85730-TC; 86850-TC; 87040-TC; 87070-TC; 87081-TC; 87086-TC; 87186-TC; 90935-TC; 93307-TC; A4216; A6253; A6403; A9563; C9113; G0378; J0692; J1815; J1956; J3370; J7050; J7060; P9016; Q9963; U0003

== ENCOUNTER 2021-04-18 22:01 | Emergency (ER) | payer MEDICARE, OTHER ==
[~2021-04-18] VITALS: Ht 162.6 cm; Wt 72.6 kg
[~2021-04-18 22:01] MED LIST changes: +ACET-868 GT; +AMIN30LI27 GT; +ASCO-352 GT; +ATOR10TA GT; +BISA10SU11 RC; +BROM2.5T15 GT; +CALC-903 GT; +CALC0.258 GT; -CHOL200013 PO; +CLON0.2T GT; +COLL30OI TP; +HEPA50007 SQ; +HYDR-4303 GT; -INSU100I4 SQ; +INSU100V27 SQ; +LABE300T2 GT; +LINA5TAB GT; +LIOT5TAB7 GT; +LISI40TA13 GT; +MINO2.5T GT; +MULT-447 PO; +NIFE30TA91 GT; +NUT.237L67 GT; +PHEN125O9 GT; +POLY17PO4 GT; -PROP20TA19 PO; +SENN-261 GT; +TRIH2TAB3 GT; +VALP250S22 GT; +ZINC1CAP3 GT
[2021-04-18 22:07] VITALS: BP 106/48
--- NOTE | 2021-04-18 22:46 | NUR ---
CALLED [facility], ETA 23:15
--- NOTE | 2021-04-18 23:15 | NUR ---
UPDATE GIVEN TO [facility], PATIENT WILL BE RETURNING TO [facility].
--- NOTE | 2021-04-18 23:40 | NUR ---
EMS GIVEN REPORT AT BEDSIDE, PATIENT WILL BE RETURNING TO [facility].
== END 2021-04-18 23:41 ==
LOC: ER 22:01
DX: Z71.1 Person with feared health complaint in whom no diagnosis is made (principal); I48.91 Unspecified atrial fibrillation; E78.5 Hyperlipidemia, unspecified; I13.2 Hypertensive heart and chronic kidney disease with heart failure and with stage 5 chronic kidney disease, or end stage renal disease; E11.22 Type 2 diabetes mellitus with diabetic chronic kidney disease; N18.6 End stage renal disease; Z99.2 Dependence on renal dialysis; Z90.49 Acquired absence of other specified parts of digestive tract; Z85.850 Personal history of malignant neoplasm of thyroid; Z88.0 Allergy status to penicillin; Z91.013 Allergy to seafood; Z79.4 Long term (current) use of insulin; Z79.899 Other long term (current) drug therapy

== ENCOUNTER 2021-04-20 16:35 | Emergency (ER) | payer MEDICARE, OTHER ==
[~2021-04-20] VITALS: Ht 167.6 cm; Wt 97.5 kg
--- NOTE | 2021-04-20 16:48 | NUR ---
The patient is bibra39, from snf for leaking GT. Noted GT site is clean and dry. No redness and no discharge noted. Abdomen soft and non-distended. Will continue to monitor the patient.
--- NOTE | 2021-04-20 17:13 | NUR ---
[facility] CALLED WITH ETA OF 60 MINS.
--- NOTE | 2021-04-20 17:47 | NUR ---
report given to nurse Tia
--- NOTE | 2021-04-20 18:26 | NUR ---
the patient is transfered to assigned facility in stable condition via arranged transpo
[2021-04-20 18:27] VITALS: BP 109/69
== END 2021-04-20 18:27 ==
LOC: ER 16:36
DX: K94.23 Gastrostomy malfunction (principal); G20 Parkinson's disease; I13.2 Hypertensive heart and chronic kidney disease with heart failure and with stage 5 chronic kidney disease, or end stage renal disease; E11.22 Type 2 diabetes mellitus with diabetic chronic kidney disease; N18.6 End stage renal disease; I50.9 Heart failure, unspecified; D63.1 Anemia in chronic kidney disease; Z99.2 Dependence on renal dialysis; I48.91 Unspecified atrial fibrillation; E78.5 Hyperlipidemia, unspecified; Z98.890 Other specified postprocedural states; Z88.0 Allergy status to penicillin; Z91.013 Allergy to seafood; Z79.899 Other long term (current) drug therapy; Z79.4 Long term (current) use of insulin

== ENCOUNTER 2021-05-31 14:55 | Inpatient (IN) | payer MEDICARE, OTHER ==
[~2021-05-31] VITALS: Ht 167.6 cm; Wt 92.5 kg
--- NOTE | 2021-05-31 15:02 | NUR ---
Lalita rebolledo in [facility] - 05/31/21 at 1558 by MICHAEL X-RAY TECH AT THE BEDSIDE
--- NOTE | 2021-05-31 15:05 | NUR ---
[id number] FRM SNF FOR LOW B/P 80/48 TACHYCARDIA. BG 331 SWORD SWALLOWER. PT SCHEDULED FOR DIALYSIS TODAY. SKIN IS WARM AND DIAPHORETIC. TACHYCARDIC @115BPM. CURRENT UK=709/61. ROMARIO ORDONEZ AT BS FOR EVAL.
[2021-05-31 15:26] LABS: BASOPHILS # (AUTO) 0.1 K/uL (0.0-0.2); BASOPHILS % (AUTO) 0.5 % (0.0-2.0); HEMATOCRIT 25 % (33-45); HEMOGLOBIN 8.1 g/dL (11.5-14.8); LYMPHOCYTES # (AUTO) 2.5 K/uL (0.8-4.8); LYMPHOCYTES % (AUTO) 19.3 % (20.0-44.0); MEAN CORPUSCULAR HGB CONC 32 g/dl (31.0-36.0); MEAN CORPUSCULAR VOLUME 97 fL (82-100); MONOCYTES # (AUTO) 1.1 K/uL (0.1-1.30); MONOCYTES % (AUTO) 8.7 % (2.0-12.0); NEUTROPHILS # (AUTO) 9.2 K/uL (1.8-8.9); NEUTROPHILS % (AUTO) 70.5 % (43.0-81.0); PLATELET COUNT (AUTO) 373 K/uL (150-450); RED BLOOD CELL COUNT(AUTO) 2.58 MIL/uL (4.0-5.2); WHITE BLOOD COUNT (AUTO) 13.1 K/uL (4.3-11.0)
[2021-05-31] MEDS ORDERED: IV NS 0.9% 1,000 ML BAG IV ONE (15:30)
[2021-05-31 15:34] LABS: CREATININE 3.7 mg/dL (0.6-1.3); POTASSIUM 4.2 mmol/L (3.5-5.1)
[2021-05-31 15:38] LABS: ALANINE AMINOTRANSFERASE 9 U/L (12-78); ALBUMIN 1.9 g/dL (3.4-5.0); ALKALINE PHOSPHATASE 89 U/L (46-116); ASPARTATE AMINOTRANSFERASE 20 U/L (15-37); BILIRUBIN,DIRECT 0.1 mg/dL (0.0-0.2); BILIRUBIN,TOTAL 0.3 mg/dL (0.2-1.0); TOTAL PROTEIN, SERUM 6.9 g/dL (6.4-8.2)
[2021-05-31] MEDS ORDERED: MEROPENEM 1 G in IV NS 0.9% 100 ML IV ONE (16:00)
[2021-05-31] MEDS ORDERED: DILTIAZEM HCL 50 MG IV IV ONE (16:00)
[2021-05-31] MEDS ORDERED: DILTIAZEM HCL 50 MG IV ONE (16:00)
[2021-05-31] MEDS ORDERED: VANCOMYCIN 1 GM in IV D5W 250 ML IV ONE (16:00)
[2021-05-31] MEDS ORDERED: ASPI-1169 GT (16:03)
[2021-05-31] MEDS ORDERED: AMIO200T5 GT (16:03)
[2021-05-31] MEDS ORDERED: PANT40TA2 GT (16:04)
[2021-05-31] MEDS ORDERED: VANC1PLA9 IV (16:04)
[2021-05-31] MEDS ORDERED: LEVE500T9 GT (16:04)
[2021-05-31] MEDS ORDERED: LACT1CAP61 GT (16:04)
--- NOTE | 2021-05-31 16:37 | NUR ---
urine collected and sent to the lab
--- NOTE | 2021-05-31 16:43 | NUR ---
covid swab done and sent to the lab
[2021-05-31 16:50] LABS: BILIRUBIN,URINE SMALL (NEGATIVE); COLOR,URINE BROWN (YELLOW); LEUKOCYTE ESTERASE ,URINE Large (NEGATIVE); NITRITE, URINE Negative (NEGATIVE); PROTEIN,URINE >=300 mg/dl (NEGATIVE); UGLUCOSE Negative (NEGATIVE); UROBILINOGEN,URINE 0.2 EU/dL (0.2)
[2021-05-31 16:56] LABS: BACTERIA,URINE 2+ /HPF (None Seen); SQUAMOUS EPITHELIAL CELL,UR Few /HPF (None Seen); WBC,URINE 21-50 /HPF (0-3)
[2021-05-31] MEDS ORDERED: MAG HYDROX/AL HYDROX/SIMETH 30 ML UDC PO PRN (17:00)
[2021-05-31] MEDS ORDERED: Z GUARD REMEDY 2 OZ OINT TP PRN (17:00)
[2021-05-31] MEDS ORDERED: hydrALAZINE HCL IV 20 MG VIAL IV PRN (17:00)
[2021-05-31] MEDS ORDERED: MORPHINE SULFATE INJ 2 MG/ML DISP.SYRIN IV PRN (17:00)
[2021-05-31] MEDS ORDERED: MIDODRINE HCL (5MG) 5 MG TABLET PO PRN (17:00)
[2021-05-31] MEDS ORDERED: ONDANSETRON HCL/PF 4 MG/2 ML VIAL IVP PRN (17:00)
[2021-05-31] MEDS ORDERED: LABETALOL 20 MG/4 ML VIAL IV PRN (17:00)
[2021-05-31] MEDS ORDERED: DEXTROSE 50%-WATER 50 ML DISP.SYRIN IV PRN (17:00)
[2021-05-31] MEDS ORDERED: MAGNESIUM HYDROXIDE 30 ML UDC PO PRN (17:00)
--- NOTE | 2021-05-31 17:26 | NUR ---
REPORT GIVEN TO NURSE JIMENEZ
[2021-05-31] MEDS ORDERED: VANCOMYCIN HCL 1.25 GM in IV D5W 260 ML IV SCH (17:30)
[2021-05-31] MEDS ORDERED: METOPROLOL TARTRATE INJ 5 MG/5 ML AMPUL IVP PRN (17:30)
--- NOTE | 2021-05-31 18:01 | NUR ---
THE PATIENT IS TRANSFERED TO ROOM 112-1 IN STABLE CONDITION AND PER ACLS POLICY.
[2021-05-31] MEDS ORDERED: NEPRO 1,000 ML BOTTLE GT SCH (18:30)
[2021-05-31] MEDS ORDERED: VANCOMYCIN 500 MG in IV D5W 100 ML IV PRN (19:30)
--- NOTE | 2021-05-31 19:42 | NUR ---
RN OPENING NOTES: RECEIVED PATIENT AWAKE IN BED, BED IN LOW POSITION, CALL LIGHTS WITHIN REACH, NO COMPLAIN OF PAIN AND DISCOMFORT AT THIS TIME, ON G TUBE FEEDING, ON TELE MONITORING WITH [facility] #18 ON G TUBE FEEDING, PATIENT IS A/OX1 WITH EPISODE OF CONFUSION, WITH [facility] ON DIALYSIS DAYS AT [facility], PATIENT PLACE IN BED COMFORTABLY, KEPT CLEAN AND DRY, WILL CONTINUE TO MONITOR.
[2021-05-31 20:00] VITALS: BP 117/61
[2021-05-31] MEDS: BLOOD SUGAR DIAGNOSTIC 1 EACH STRIP VI SCH (22:00)
[2021-05-31] MEDS: TRIHEXYPHENIDYL HCL 2 MG TABLET GT SCH (22:13)
[2021-05-31] MEDS: VALPROIC ACID 250 MG/5 ML UDC GT SCH (22:13)
[2021-05-31] MEDS: ATORVASTATIN 10 MG TABLET GT SCH (22:14)
[2021-05-31] MEDS: LEVETIRACETAM SOL (5 ML) 100 MG/ML UDC GT SCH (22:14)
[2021-05-31] MEDS: APIXABAN 5 MG TABLET PO SCH (22:15)
[2021-05-31] MEDS: AMIODARONE HCL 200 MG TABLET GT SCH (22:31)
[2021-06-01] MEDS: INSULIN GLARGINE, 100 UNIT/ML CARTRIDGE SQ SCH ×2 (00:12→21:56)
[2021-06-01 01:57] VITALS: BP 101/56
[2021-06-01 04:00] VITALS: BP 111/47
[2021-06-01] MEDS: CEFEPIME 1 GM in IV D5W 50 ML IV SCH (04:23)
[2021-06-01 06:37] LABS: BASOPHILS # (AUTO) 0.1 K/uL (0.0-0.2); BASOPHILS % (AUTO) 0.6 % (0.0-2.0); EOSINOPHILS % (AUTO) 1.3 % (0.0-6.0); LYMPHOCYTES # (AUTO) 1.4 K/uL (0.8-4.8)
[2021-06-01 06:57] LABS: HEMATOCRIT 23 % (33-45); HEMOGLOBIN 7.5 g/dL (11.5-14.8); MEAN CORPUSCULAR HGB CONC 33 g/dl (31.0-36.0); MEAN CORPUSCULAR VOLUME 98 fL (82-100); MONOCYTES # (AUTO) 0.8 K/uL (0.1-1.30); MONOCYTES % (AUTO) 7.5 % (2.0-12.0); NEUTROPHILS # (AUTO) 8.6 K/uL (1.8-8.9); NEUTROPHILS % (AUTO) 77.6 % (43.0-81.0); PLATELET COUNT (AUTO) 378 K/uL (150-450); RED BLOOD CELL COUNT(AUTO) 2.33 MIL/uL (4.0-5.2)
[2021-06-01 07:04] LABS: ALBUMIN 1.7 g/dL (3.4-5.0); BILIRUBIN,TOTAL 0.3 mg/dL (0.2-1.0); CALCIUM, SERUM 9.2 mg/dL (8.5-10.1); CREATININE 4.2 mg/dL (0.6-1.3); PHOSPHORUS 2.3 mg/dL (2.5-4.9); POTASSIUM 4.5 mmol/L (3.5-5.1); TOTAL PROTEIN, SERUM 6.3 g/dL (6.4-8.2)
--- NOTE | 2021-06-01 07:07 | NUR ---
RN CLOSING NOTES: RECEIVED PATIENT SLEEP IN BED COMFORTABLY, BED IN LOW POSITION CALL LIGHTS WITHIN REACH, NO COMPLAIN OF PAIN AND DISCOMFORT NO FACIAL GRIMACING NOTED ON TELE MONITORING , WITH IV LINE AT [facility] #18 AND [facility] HD PORT, PATIENT ON G TUBE FEEDING NEPHRO AT 500ML/HR INFUSING WELL, PATIENT KEPT CLEAN AND DRY ALL NEEDS MET ENDORSE TO INCOMING SHIFT.
--- NOTE | 2021-06-01 07:30 | NUR ---
RN Note: Pt received asleep, responsive to verbal & tactile stimuli, alert oriented X 1. On 3 LPM o2 via NC, no breathing distress noted. No s/s of pain & discomfort noted. IV site & Dialysis site clean, intact & dry. Continue with tube feeding, tolerating well. Aspiration precautions observed. Safety measures observed. Continue to monitor.
[2021-06-01 08:00] VITALS: BP 105/55
[2021-06-01] MEDS: LEVETIRACETAM SOL (5 ML) 100 MG/ML UDC GT SCH ×2 (08:08→20:57)
[2021-06-01] MEDS: ASPIRIN 81 MG TAB.CHEW GT SCH (08:08)
[2021-06-01] MEDS: MULTIVIT W/MINERALS 1 TAB TABLET PO SCH (08:08)
[2021-06-01] MEDS: CALCIUM CARBONATE 500 MG TAB.CHEW GT SCH ×2 (08:08→16:45)
[2021-06-01] MEDS: ACIDOPHILUS/BULGARICUS 1 EACH TAB.CHEW GT SCH ×2 (08:08→16:45)
[2021-06-01] MEDS: VALPROIC ACID 250 MG/5 ML UDC GT SCH ×2 (08:08→20:57)
[2021-06-01] MEDS: ZINC SULFATE 220 MG CAPSULE GT SCH (08:08)
[2021-06-01] MEDS: ASCORBIC ACID 500 MG TABLET GT SCH (08:08)
[2021-06-01] MEDS: BLOOD SUGAR DIAGNOSTIC 1 EACH STRIP VI SCH ×4 (08:09→21:57)
[2021-06-01] MEDS: LEVOTHYROXINE SODIUM 100 MCG TABLET GT SCH (08:09)
[2021-06-01] MEDS: CARBIDOPA/LEVODOPA 25/100 MG 1 UDTAB GT SCH ×3 (08:09→16:45)
[2021-06-01] MEDS: APIXABAN 5 MG TABLET PO SCH (08:12)
[2021-06-01] MEDS: INSULIN REGULAR, HUMAN 100 UNIT/ML 3 ML VIAL SQ PRN ×3 (08:13→17:46)
[2021-06-01] MEDS: AMLODIPINE BESYLATE 5 MG TABLET GT SCH (08:15)
[2021-06-01] MEDS: AMIODARONE HCL 200 MG TABLET GT SCH ×2 (08:21→20:57)
[2021-06-01] MEDS ORDERED: CALCIUM CARBONATE (1250) 500 MG TABLET GT SCH (09:00)
[2021-06-01 10:59] LABS: ABG OXYGEN SATURATION 98.5 % (92.0-98.5); ABG PCO2 43.6 mmHg (35.0-45.0); ABG PO2 130.9 mmHg (75.0-100.0); AaDO2 46.3 mmHg; COHb 0.3 % (0.5-1.5); MetHb 0.2 % (0.0-1.5); SITE, ABG Right Radial; VENT MODE, BG NASAL CANNULA
[2021-06-01] MEDS: TRIHEXYPHENIDYL HCL 2 MG TABLET GT SCH ×2 (11:10→20:54)
[2021-06-01] MEDS: ACETAMINOPHEN 325 MG TABLET PO PRN ×2 (11:10→21:00)
[2021-06-01] MEDS ORDERED: EPOETIN ALFA (4000 UNIT) 4,000 UNIT/ML VIAL IV PRN (11:30)
[2021-06-01 12:00] VITALS: BP 104/51
[2021-06-01 12:10] LABS: T4 (THYROXINE) 7.5 ug/dL (4.7-13.3); THYROID STIMULATING HORMONE 5.805 uIU/mL (0.358-3.74)
[2021-06-01] MEDS: ALBUMIN 25% 25 GM in PREMIX 1 EA IV PRN (12:19)
[2021-06-01] MEDS: INSULIN LISPRO/ASPART 100 UNIT/ML CARTRIDGE SQ SCH ×2 (12:22→17:45)
[2021-06-01 12:39] LABS: VALPROIC ACID < 3 ug/mL (50-100)
[2021-06-01 16:00] VITALS: BP 105/62
[2021-06-01] MEDS: HEPARIN INFUSION/D5W 500 ML IV PRN (16:07)
--- NOTE | 2021-06-01 19:05 | NUR ---
RN NOTES: UPON ENDORSEMENT ASLEEP ON BED, ON TELE MONITOR, ON O2 INHALATION, PEG TUBE FEEDING ONGOING. FOR CLOSE VISUAL CHECK.
--- NOTE | 2021-06-01 19:44 | NUR ---
RN NOTES: RECEIVED ASLEEP ON BED, PER ENDORSEMENT SHE WAS LETHARGIC AND WEAK THIS MORNING, WAS AWARE, KEPT ON MONITORING ON 02 AT 1-2L/MIN SPO2-95%,STARTED ON HEPARIN DRIP AROUND 1600 AT 1,600 UNIT/HR,RAC#18, DUE TO PT/INR AT 2200, HER LATEST BS WAS 162, SLIGHT FEVERISH AND RECEIVED TYLENOL FROM MORNING SHIFT, G-TUBE FEEDING NEPHRO 1.8 AT 50 ML/HR, [facility], SHE HAS HD TODAY OUTPUT WAS 2LITERS. WILL CONTINUE TO MONITOR. --ON CRM MANAGER CONTROLLED A.FIB RATE 84, SLEEPING COMFORTABLY, NO FACIAL GRIMACE NOTED, NO SIGN OF RESPIRATORY DISTRESS.FALL, SAFETY AND ASPIRATION PRECAUTION OBSERVED.
[2021-06-01 20:00] VITALS: BP 108/53
[2021-06-01] MEDS: ATORVASTATIN 10 MG TABLET GT SCH (21:03)
--- NOTE | 2021-06-01 21:35 | NUR ---
RN NOTES: FACIAL GRIMACE DURING REPOSITIONING, GIVEN PRN TYLENOL, ALL DUE MEDICATION GIVEN, G-TUBE FEEDING ONGOING,HEPARIN DRIP ONGOING,, FLUSHING GIVEN.
--- NOTE | 2021-06-01 22:03 | NUR ---
RN NOTES: AWAKE IN BETWEEN, SHE OPEN HER EYES WHEN HER BLOOD SUGAR WAS CHECKED, SHE HAS FACIAL GRIMACE WHEN HER FINER WAS PRICK, ABLE TO RESPOND TO PAINFUL STIMULI
[2021-06-01] MEDS: *INSULIN REGULAR(HUMULIN R)HUM 100 UNIT/ML VIAL SQ PRN (22:08)
--- NOTE | 2021-06-01 22:09 | NUR ---
RN NOTES: BLOOD SUGAR -169, INSULIN GIVEN PER SCALE.
--- NOTE | 2021-06-01 22:24 | NUR ---
RN NOTES; ENGINEER STEAM CAME TO EXTRACT BLOOD FOR PT/INR TEST, ON HEPARIN DRIP.
--- NOTE | 2021-06-01 22:53 | NUR ---
RN NOTES: WASTE DISPOSAL PLANT OPERATOR/JOSE JUAN HAVE HARD TIME TO EXTRACT HER BLOOD, RN/CN HELP HER TO EXTRACT BLOOD, FOR PT TEST.
[2021-06-02] VITALS: BP 107/61
--- NOTE | 2021-06-02 00:21 | NUR ---
RN NOTES: -PTT RESULT-48.3,VCN/RN NOTIFIED, BASE ON THE PARAMETER, RESULT 46-70=CHANGE, CONTINUE ON THE SAME RATE, FOR PTT TOMORROW AT 2300. - NOTIFIED PATIENT IS HARD STICK,SHE AGREE FOR MID LINE INSERTION. -RN/CN NOTIFIED FOR MIDLINE INSERTION.
--- NOTE | 2021-06-02 01:26 | NUR ---
RN NOTES: MID LINE INSERTED BY IRAIS IN THE SADIA G#18.
[2021-06-02] MEDS: CEFEPIME 1 GM in IV D5W 50 ML IV SCH (03:01)
[2021-06-02] MEDS: NEPRO 1,000 ML BOTTLE GT PRN (03:23)
--- NOTE | 2021-06-02 03:23 | NUR ---
RN NOTES; FEEDING OF NEPHRO 1.8 CONSUMED, STARTED WITH NEW BOTTLE AT 50ML/HR, TOLERATED,ASPIRATION PRECAUTION OBSERVED.
[2021-06-02 04:00] VITALS: BP 102/52
--- NOTE | 2021-06-02 05:15 | NUR ---
RN NOTES: AWAKE IN BETWEEN, SHE ANSWERED THE RN WHEN SHE WAS GREETED,ASKED IF SHE IS IN PAIN SHE SAID "IM OK" OPENING HIS EYES, FLAT AFFECT BUT ALERT AND COHERENT WITH SIMPLE QUESTION YES AND NO.
[2021-06-02 07:19] LABS: CALCIUM, SERUM 9.3 mg/dL (8.5-10.1); CREATININE 2.9 mg/dL (0.6-1.3)
--- NOTE | 2021-06-02 07:37 | NUR ---
RN NOTES: MORNING CARE DONE, DRESSING ON THE SACRAL AREA DONE, REPOSITIONED, FLUSHING DONE, SHE WAS AWAKE DURING ENDORSEMENT TIME, MORE ALERT.ENDOSED FOR CONTINUITY OF CARE.
--- NOTE | 2021-06-02 07:46 | NUR ---
RN OPENING NOTE Patient is awake, alert and oriented x 1, responsive to simple questions. On 3 liters via NC, no respiratory distress, no SOB. Enteral feeding running nephro 50cc/hr. SADIA midline with no s/sx of infiltration, running heparin drip @1600, last PTT results 48.3, per protocol no changes, next PTT schedule for night, no s/sx of bleeding noted. Safety precautions implemented, bed locked in lowest position, call light within reach.
[2021-06-02 08:00] VITALS: BP 121/57
[2021-06-02 08:06] LABS: T3, FREE 0.7 pg/mL (2.0-4.4)
[2021-06-02] MEDS: BLOOD SUGAR DIAGNOSTIC 1 EACH STRIP VI SCH ×4 (09:24→21:02)
[2021-06-02] MEDS: ZINC SULFATE 220 MG CAPSULE GT SCH (09:24)
[2021-06-02] MEDS: AMIODARONE HCL 200 MG TABLET GT SCH ×2 (09:25→21:02)
[2021-06-02] MEDS: AMLODIPINE BESYLATE 5 MG TABLET GT SCH (09:25)
[2021-06-02] MEDS: MULTIVIT W/MINERALS 1 TAB TABLET PO SCH (09:25)
[2021-06-02] MEDS: ACIDOPHILUS/BULGARICUS 1 EACH TAB.CHEW GT SCH ×2 (09:25→17:29)
[2021-06-02] MEDS: ASCORBIC ACID 500 MG TABLET GT SCH (09:26)
[2021-06-02] MEDS: LEVOTHYROXINE SODIUM 100 MCG TABLET GT SCH (09:26)
[2021-06-02] MEDS: LEVETIRACETAM SOL (5 ML) 100 MG/ML UDC GT SCH ×2 (09:27→21:02)
[2021-06-02] MEDS: CARBIDOPA/LEVODOPA 25/100 MG 1 UDTAB GT SCH ×3 (09:27→17:29)
[2021-06-02] MEDS: VALPROIC ACID 250 MG/5 ML UDC GT SCH ×2 (09:27→21:02)
[2021-06-02] MEDS: ASPIRIN 81 MG TAB.CHEW GT SCH (09:27)
[2021-06-02] MEDS: CALCIUM CARBONATE 500 MG TAB.CHEW GT SCH ×2 (09:27→17:29)
[2021-06-02] MEDS: TRIHEXYPHENIDYL HCL 2 MG TABLET GT SCH ×2 (09:29→21:03)
[2021-06-02] MEDS: HEPARIN INFUSION/D5W 500 ML IV PRN (09:49)
[2021-06-02] MEDS: INSULIN REGULAR, HUMAN 100 UNIT/ML 3 ML VIAL SQ PRN ×3 (09:53→17:35)
[2021-06-02] MEDS ORDERED: ALBUMIN 25% 25 GM in PREMIX 1 EA IV SCH (10:00)
--- NOTE | 2021-06-02 11:43 | NUR ---
PER Jhony THE RN, PT ON BLOOD THINNER HEPARIN IV SINCE THIS MORNING. DUE TO RISKS OF PNEUMOTHORAX THE PROCEDURE CANNOT BE DONE AFTER 3 PM. RN WAS INFORMED TO HOLD ON HEPARIN FOR THORACENTESIS TO BE DONE TOMORROW. RN WILL NOTIFY THE ORDERING MD.
--- NOTE | 2021-06-02 11:48 | NUR ---
RN NOTE Spoke with Sanjuana at [facility], Heparin drip needs to be on hold for at least 4 hours prior to thoracentesis, next available thora will be in 06/03/21 0900-12pm. Will inform
[2021-06-02 12:00] VITALS: BP 156/52
[2021-06-02] MEDS: LIOTHYRONINE SODIUM (25 MCG) 25 MCG TABLET PO SCH (12:46)
[2021-06-02] MEDS: INSULIN LISPRO/ASPART 100 UNIT/ML CARTRIDGE SQ SCH ×2 (12:50→17:34)
[2021-06-02] MEDS ORDERED: VANCOMYCIN 500 MG in IV D5W 100ml IV ONE (13:30)
[2021-06-02 16:00] VITALS: BP 148/72
--- NOTE | 2021-06-02 18:38 | NUR ---
RN CLOSING NOTE Patient is A/O X 1, responds simple questions verbally, on 3 liters via NC, no respiratory distress, no SOB. Controlled AFIB 80's. On herparin drip 1600units per protocol. No s/sx of active bleeding. SADIA Midline with no s/sx of infiltration. No s/sx of hyperglycemia/hypoglycemia. AM/PM care rendered, wound care rendered. Right upper chest HD cath with clean dressing. Safety precautions implemented, bed locked in lowest position, call light within reach. Spoke with daughter gave verbal consent for thoracentesis in AM. approved to hold heparin at 0500 on 06/03/21 for thoracentesis in AM. 0730-328mg/dl, insulin as ordered. 1200-382mg/dl, insulin as ordered. 1700-279mg/dl, insulin as ordered.
[2021-06-02 20:00] VITALS: BP 106/58
[2021-06-02] MEDS: ATORVASTATIN 10 MG TABLET GT SCH (21:03)
[2021-06-02] MEDS: *INSULIN REGULAR(HUMULIN R)HUM 100 UNIT/ML VIAL SQ PRN (21:34)
[2021-06-02] MEDS: INSULIN GLARGINE, 100 UNIT/ML CARTRIDGE SQ SCH (21:35)
[2021-06-03] VITALS: BP 109/55
[2021-06-03] MEDS: HEPARIN INFUSION/D5W 500 ML IV PRN (01:22)
[2021-06-03] MEDS: CEFEPIME 1 GM in IV D5W 50 ML IV SCH (03:55)
[2021-06-03 04:00] VITALS: BP 122/63
--- NOTE | 2021-06-03 05:00 | NUR ---
RN NOTE PER MD ORDER, STOP HEPARIN INFUSION AT 0500. FOR THORACENTESIS PROCEDURE IN THE AM. NOTED AND CARRIED OUT.
--- NOTE | 2021-06-03 06:00 | NUR ---
RN NOTE NO SIGNIFICANT CHANGES DURING SHIFT. PATIENT SLEEPING AT THIS TIME, EASILY AROUSABLE. NON-VERBAL. PATIENT ON LOW FLOW OXYGEN, NO SOB NOTED. KEPT CLEAN AND DRY AT ALL TIMES. WOUNDS KEPT CLEAN AND DRY. PATIENT IS OFF HEPARIN DRIP. OFF G-TUBE FEEDING. FEEDING TOLERATED WELL DURING SHIFT. SAFETY PRECAUTIONS IMPLEMENTED, CALL LIGHT WITHIN REACH.
[2021-06-03 06:38] LABS: BASOPHILS # (AUTO) 0.1 K/uL (0.0-0.2); BASOPHILS % (AUTO) 0.7 % (0.0-2.0); EOSINOPHILS % (AUTO) 1.6 % (0.0-6.0); HEMATOCRIT 22 % (33-45); HEMOGLOBIN 7.4 g/dL (11.5-14.8); LYMPHOCYTES # (AUTO) 1.4 K/uL (0.8-4.8); LYMPHOCYTES % (AUTO) 14.3 % (20.0-44.0); MEAN CORPUSCULAR HGB CONC 33 g/dl (31.0-36.0); MEAN CORPUSCULAR VOLUME 98 fL (82-100); MONOCYTES # (AUTO) 0.7 K/uL (0.1-1.30); MONOCYTES % (AUTO) 7.3 % (2.0-12.0); NEUTROPHILS # (AUTO) 7.7 K/uL (1.8-8.9); NEUTROPHILS % (AUTO) 76.1 % (43.0-81.0); PLATELET COUNT (AUTO) 355 K/uL (150-450); WHITE BLOOD COUNT (AUTO) 10.1 K/uL (4.3-11.0)
[2021-06-03 06:45] LABS: ALANINE AMINOTRANSFERASE < 6 U/L (12-78); ALBUMIN 1.7 g/dL (3.4-5.0); ALKALINE PHOSPHATASE 102 U/L (46-116); ASPARTATE AMINOTRANSFERASE 11 U/L (15-37); BILIRUBIN,TOTAL 0.3 mg/dL (0.2-1.0); CALCIUM, SERUM 9.5 mg/dL (8.5-10.1); CARBON DIOXIDE 30 mmol/L (21-32); CHLORIDE 99 mmol/L (98-107); CREATININE 3.8 mg/dL (0.6-1.3); GLUCOSE 217 mg/dL (74-106); MAGNESIUM 2.8 mg/dL (1.8-2.4); PHOSPHORUS 2.6 mg/dL (2.5-4.9); POTASSIUM 4.4 mmol/L (3.5-5.1); SODIUM SERUM 135 mmol/L (136-145); TOTAL PROTEIN, SERUM 6.1 g/dL (6.4-8.2); UREA NITROGEN, BLOOD 57 mg/dL (7-18)
[2021-06-03] MEDS: NEPRO 1,000 ML BOTTLE GT PRN (07:08)
--- NOTE | 2021-06-03 07:31 | NUR ---
RN OPENING NOTES Patient is awake, alert to stimuli, no respiratory distress, no SOB, on 3 liters via NC, on semifowlers position, enteral feeding nephro running. heparin drip on hold. SADIA Midline in place with no s/sx of infiltration. Safety precautions implemented, bed locked in lowest position, call light within reach.
[2021-06-03 08:00] VITALS: BP 122/59
[2021-06-03] MEDS: ZINC SULFATE 220 MG CAPSULE GT SCH (08:07)
[2021-06-03] MEDS: LIOTHYRONINE SODIUM (25 MCG) 25 MCG TABLET PO SCH (08:07)
[2021-06-03] MEDS: ACIDOPHILUS/BULGARICUS 1 EACH TAB.CHEW GT SCH ×2 (08:08→17:46)
[2021-06-03] MEDS: MULTIVIT W/MINERALS 1 TAB TABLET PO SCH (08:08)
[2021-06-03] MEDS: CARBIDOPA/LEVODOPA 25/100 MG 1 UDTAB GT SCH ×3 (08:08→17:46)
[2021-06-03] MEDS: LEVETIRACETAM SOL (5 ML) 100 MG/ML UDC GT SCH ×2 (08:08→22:01)
[2021-06-03] MEDS: CALCIUM CARBONATE 500 MG TAB.CHEW GT SCH ×2 (08:08→17:46)
[2021-06-03] MEDS: ASCORBIC ACID 500 MG TABLET GT SCH (08:09)
[2021-06-03] MEDS: ASPIRIN 81 MG TAB.CHEW GT SCH (08:09)
[2021-06-03] MEDS: AMLODIPINE BESYLATE 5 MG TABLET GT SCH (08:09)
[2021-06-03] MEDS: LEVOTHYROXINE SODIUM 100 MCG TABLET GT SCH (08:10)
[2021-06-03] MEDS: BLOOD SUGAR DIAGNOSTIC 1 EACH STRIP VI SCH ×4 (08:10→22:46)
[2021-06-03] MEDS: AMIODARONE HCL 200 MG TABLET GT SCH ×2 (08:10→22:01)
[2021-06-03] MEDS: VALPROIC ACID 250 MG/5 ML UDC GT SCH ×2 (08:11→22:00)
[2021-06-03] MEDS: INSULIN LISPRO/ASPART 100 UNIT/ML CARTRIDGE SQ SCH ×3 (08:13→18:09)
[2021-06-03] MEDS: INSULIN REGULAR, HUMAN 100 UNIT/ML 3 ML VIAL SQ PRN (08:13)
[2021-06-03] MEDS: TRIHEXYPHENIDYL HCL 2 MG TABLET GT SCH ×2 (08:22→22:00)
--- NOTE | 2021-06-03 09:41 | NUR ---
WOUND CARE CONSULT: REVIEWED CHART, NURSING DOCUMENTATION AND PHOTOS WHICH INDICATE DISCOLORATION TO HEELS, CHEST AND ABDOMINAL FOLDS WELL LARGE STAGE 4 ULCER TO SACRUM. SURGICAL AND DPM CONSULTS CALLED TO DR BEJARANO AND DR PARRA. PT IS ON FIRST STEP CIRRUS LOW AIRLOSS MATTRESS. RECOMMENDATIONS MADE FOR SKIN PROTECTION. DISCUSSED WITH NURSING STAFF. MD IN AGREEMENT WITH PLAN OF CARE.
--- NOTE | 2021-06-03 09:55 | NUR ---
RN NOTE 0924-Thoracentesis done at bedside by , Collected 800cc. Procedure tolerated well. Will send fluid for analysis to the lab. Clarified order with Px for albumin x doses s/p thoracentesis to be scheduled today. Addendum: 06/03/21 at 0958 by TERESA RICHARDSON RN Placed order for STAT CxR.
[2021-06-03] MEDS: ALBUMIN 25% 25 GM in PREMIX 1 EA IV SCH ×2 (10:12→22:49)
[2021-06-03 12:00] VITALS: BP 105/47
--- NOTE | 2021-06-03 13:19 | NUR ---
RN NOTE Albumin 1 dose given s/p thoracentesis prior to HD. HD done today 2 liters removed. Blood culture obtained from HD cath.
[2021-06-03 16:00] VITALS: BP 126/68
[2021-06-03] MEDS: APIXABAN 5 MG TABLET PO SCH (18:10)
[2021-06-03] MEDS ORDERED: LIDOCAINE 1%-EPI 1:100,000 20 ML VIAL TP ONE (18:30)
[2021-06-03] MEDS: DAKINS QUARTER STRENGTH (0.125%) 480 ML BOTTLE TOP SCH (18:30)
[2021-06-03] MEDS ORDERED: SILVER NITRATE APPLICATOR 1 EA BOX TP SCH (18:30)
--- NOTE | 2021-06-03 18:55 | NUR ---
RN CLOSING NOTES Patient is alert to stimuli, not oriented, non-responsive as baseline. On mechanical vent tolerating settings well. No respiratory distress, no SOB. Enteral feeding nephro @45cc.hr, flushed with 100cc q4h, right upper arm midline with no s/sx of infiltration. No s/sx of hyperglycemia/hypoglycemia. AM/PM care rendered, wound care rendered. Safety precautions implemented, bed locked in lowest position, call light within reach. 0730-100mg/dl, no insulin coverage 1230-109mg/dl, no insulin coverage 1700-103mg/dl, no insulin coverage Addendum: 06/03/21 at 1932 by TERESA RICHARDSON RN Wrong documentation.
--- NOTE | 2021-06-03 19:25 | NUR ---
TELE/RN OPENING NOTE RECEIVED PATIENT RESTING IN BED. AWAKE, ALERT AND ORIENTED X 1. DENIES PAIN AT THIS TIME. CONTINUES ON 1L O2 NC WITH NO S/SX OF RESPIRATORY DISTRESS NOTED. CONTINUES ON TELE MONITOR WITH CURRENT READING AFIB HR 89. IV ACCESS TO RIGHT UPPER ARM MIDLINE INTACT, PATENT AND SALINE LOCKED. RIGHT UPPER CHEST WALL HD CATH INTACT. CONTINUES ON IV ABX. FAMILY AT BEDSIDE WITH PLAN OF CARE DISCUSSED. CALL LIGHT WITHIN REACH. ASPIRATION, FALL AND SAFETY PRECAUTIONS MAINTAINED. WILL CONTINUE TO MONITOR.
--- NOTE | 2021-06-03 19:31 | NUR ---
RN CLOSING NOTES Patient is awake, alert and oriented x 1, on 1 liters of oxygen via nasal cannula, no respiratory distress, no SOB. Sinus rhythm. Enteral feeding @50cc/hr x 20 hours. Right upper arm midline with no s/sx of infiltration. No s/sx of hyperglycemia/hypoglycemia. AM/PM care rendered, reposition accordingly. Wound care rendered. Safety precautions implemented, bed locked in lowest position, call light within reach. 0730-209mg/dl, insulin as ordered 1230 112mg/dl, insulin as ordered 1730-123 mg/dl, insulin as ordered
[2021-06-03 20:00] VITALS: BP 109/48
[2021-06-03] MEDS ORDERED: VANCOMYCIN 1 GM in IV D5W 250ml IV ONE (20:30)
[2021-06-03] MEDS: ACETAMINOPHEN 325 MG TABLET PO PRN (22:01)
[2021-06-03] MEDS: ATORVASTATIN 10 MG TABLET GT SCH (22:01)
[2021-06-03] MEDS: INSULIN GLARGINE, 100 UNIT/ML CARTRIDGE SQ SCH (22:51)
[2021-06-03] MEDS: *INSULIN REGULAR(HUMULIN R)HUM 100 UNIT/ML VIAL SQ PRN (22:55)
[2021-06-04] VITALS (7 sets, daily range): BP systolic 94–120; BP diastolic 46–65
[2021-06-04] MEDS: CEFEPIME 1 GM in IV D5W 50 ML IV SCH (04:23)
--- NOTE | 2021-06-04 06:15 | NUR ---
TELE/RN CLOSING NOTE PATIENT CURRENTLY SLEEPING IN BED. ALERT AND ORIENTED X 1. DENIES PAIN AT THIS TIME. CONTINUES ON 1L O2 NC WITH NO S/SX OF RESPIRATORY DISTRESS NOTED. IV ACCESS TO RIGHT UPPER ARM MIDLINE INTACT, PATENT AND SALINE LOCKED. RIGHT UPPER CHEST WALL HD CATH INTACT. CONTINUES ON IV ABX. CALL LIGHT WITHIN REACH. ASPIRATION, FALL AND SAFETY PRECAUTIONS MAINTAINED. WILL ENDORSE PLAN OF CARE TO ONCOMING SHIFT.
[2021-06-04] MEDS: NEPRO 1,000 ML BOTTLE GT PRN (06:43)
--- NOTE | 2021-06-04 07:30 | NUR ---
RN OPENING NOTES; RECEIVED PT IN BED, IN SUPINE POS. PT A/OX1. PT ON GT FEEDING, NEPRO 50ML/HR X 20HRS. SADIA MIDLINE NOTED #18G FLUSHED AND RUNNING WELL. ALL SAFETY MEASURES RENDERED, BED LOCKED, IN LOWEST POS. WITH CALL LIGHT WITHIN REACH. WILL CONTINUE TO MONITOR.
[2021-06-04] MEDS: LEVOTHYROXINE SODIUM 100 MCG TABLET GT SCH (07:43)
[2021-06-04] MEDS: BLOOD SUGAR DIAGNOSTIC 1 EACH STRIP VI SCH ×4 (07:44→22:05)
[2021-06-04] MEDS: LIOTHYRONINE SODIUM (25 MCG) 25 MCG TABLET PO SCH (07:44)
[2021-06-04] MEDS: INSULIN LISPRO/ASPART 100 UNIT/ML CARTRIDGE SQ SCH ×3 (07:44→17:00)
[2021-06-04] MEDS: INSULIN REGULAR, HUMAN 100 UNIT/ML 3 ML VIAL SQ PRN ×3 (07:48→16:46)
[2021-06-04] MEDS: ACIDOPHILUS/BULGARICUS 1 EACH TAB.CHEW GT SCH ×2 (08:31→16:19)
[2021-06-04] MEDS: VALPROIC ACID 250 MG/5 ML UDC GT SCH ×2 (08:31→21:44)
[2021-06-04] MEDS: TRIHEXYPHENIDYL HCL 2 MG TABLET GT SCH ×2 (08:31→21:45)
[2021-06-04] MEDS: MULTIVIT W/MINERALS 1 TAB TABLET PO SCH (08:31)
[2021-06-04] MEDS: CARBIDOPA/LEVODOPA 25/100 MG 1 UDTAB GT SCH ×3 (08:31→16:19)
[2021-06-04] MEDS: ASCORBIC ACID 500 MG TABLET GT SCH (08:31)
[2021-06-04] MEDS: CALCIUM CARBONATE 500 MG TAB.CHEW GT SCH ×2 (08:31→16:19)
[2021-06-04] MEDS: LEVETIRACETAM SOL (5 ML) 100 MG/ML UDC GT SCH ×2 (08:31→21:44)
[2021-06-04] MEDS: ZINC SULFATE 220 MG CAPSULE GT SCH (08:31)
[2021-06-04] MEDS: ASPIRIN 81 MG TAB.CHEW GT SCH (08:31)
[2021-06-04] MEDS: AMIODARONE HCL 200 MG TABLET GT SCH ×2 (08:32→21:45)
[2021-06-04] MEDS: AMLODIPINE BESYLATE 5 MG TABLET GT SCH (08:32)
[2021-06-04] MEDS: APIXABAN 5 MG TABLET PO SCH ×3 (08:34→16:59)
[2021-06-04 08:51] LABS: ALBUMIN 2.2 g/dL (3.4-5.0); BILIRUBIN,TOTAL 0.4 mg/dL (0.2-1.0); CREATININE 3.1 mg/dL (0.6-1.3); POTASSIUM 3.8 mmol/L (3.5-5.1); TOTAL PROTEIN, SERUM 5.8 g/dL (6.4-8.2)
--- NOTE | 2021-06-04 09:14 | NUR ---
RN NOTES; OBTAINED CONSENT FOR SACRAL DEBRIDEMENT FROM DAUGHTER CHRISTINA. WITNESS BY CHANNING LOPEZ. PAPER WORK SIGNED AND IN PT CHART.
[2021-06-04] MEDS: DAKINS QUARTER STRENGTH (0.125%) 480 ML BOTTLE TOP SCH (09:15)
[2021-06-04] MEDS: PROSOURCE / PROSTAT (PYXIS) 30 ML UDC GT SCH ×3 (10:55→16:19)
--- NOTE | 2021-06-04 17:01 | NUR ---
RN NOTES; PT S/P DEBRIDEMENT OF SACRAL. SLIGHT BLEEDING NOTED. HGB 7.4. DNP NOTIFIED, ELIQUIS GIVEN PER MD ORDER.
--- NOTE | 2021-06-04 18:15 | NUR ---
RN CLOSING NOTES; PT IN BED, VISITING WITH DAUGHTER. PT A/OX1. PT ABLE TO VERBALIZE NEEDS. PT S/P DEBRIDEMENT OF SACRAL. PT HAS NO C/O PAIN. ALL MEDICATIONS GIVEN AND WELL TOLERATED. NO SIGNIFICANT CHANGES TO PT HEALTH DURING SHIFT. SAFETY MEASURES RENDERED, BED IN LOWEST POS. LOCKED, WITH CALL LIGHT WITHIN REACH. ENDORSED TO PROVISIONING ANALYST RN IN STABLE CONDITION.
--- NOTE | 2021-06-04 19:30 | NUR ---
RN OPENING NOTES: RECEIVED PT A/OX1 IN BED RESTING COMFORTABLY. PATIENT IN NO S/SX OF ACUTE DISTRESS AT THIS TIME. NO SOB NOTED. PATIENT'S BREATHING IS EVEN AND UNLABORED. PATIENT IS ON 1L OF OXYGEN VIA NC; TOLERATING WELL. PT ON MS STATUS. PT HAS G TUBE FLUSHING AND PATENT; SITE CLEAN DRY AND INTACT; NO RESIDUAL NOTED; CONNECTED TO GTUBE FEEDING OF NEPRO AT @50CC/HR;TOLERATES WELL. NOTED IV SITE ON R UAM MIDLINE#18; PATENT, INTACT AND FLUSHING WELL; NO S/S OF INFECTION OR INFILTRATION. PT ALSO HAS R U CW HD CATH SECURED AND INTACT NO SIGNS OF INFECTION. SAFETY MEASURES HAVE BEEN PROVIDED AND IMPLEMENTED. PATIENT BED ALARM IS ON. HEAD OF BED ELEVATED. BED IS LOCKED, IN LOWEST POSITION AND SIDE RAILS UP. CALL LIGHT WITHIN REACH OF THE PATIENT. APPLICABLE ISOLATION PRECAUTIONS IN PLACE. WILL CONTINUE TO MONITOR AND REASSESS FOR ANY CHANGES AND WILL CARRY OUT ANY ONGOING AND ACTIVE MD ORDER.
[2021-06-04] MEDS: ATORVASTATIN 10 MG TABLET GT SCH (21:46)
[2021-06-04] MEDS: INSULIN GLARGINE, 100 UNIT/ML CARTRIDGE SQ SCH (22:03)
[2021-06-04] MEDS: *INSULIN REGULAR(HUMULIN R)HUM 100 UNIT/ML VIAL SQ PRN (22:04)
--- NOTE | 2021-06-04 23:18 | NUR ---
RN NOTES REPORT GIVEN TO MATEO FOR ADEEL; PT WILL BE TRANSFERRED TO MED SUG RM 310#2. COMPLIANCE MANAGER WELL AWARE.
--- NOTE | 2021-06-04 23:39 | NUR ---
RN NOTES PT TRANSFERRED TO MED SURG UNIT 310#2; CHANNING GALINDO FOR ADEEL. RECEIVED PT IN STABLE CONDITION; V/S WNL. ALL BELONGINGS, MEDICATIONS AND CHART PROVIDED TO RN, COLOR ARTIST MADE WELL AWARE.
--- NOTE | 2021-06-04 23:40 | NUR ---
RN ms opening notes Received Pt from CHANNING Doll. Pt arrived at the unit with a gurney. Pt is alert and orientedX1. Pt is resting in bed comfortably. Respiration is normal in 1 L NC. No SOB. No S/S of distress noted. VS is stable. RU chest wall HD cath is clean and intact. RU midline # 18 is clean, intact and flushes well. 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 Gtube is clean, intact and running nephro @ 50 ml/hr. Pt tolerated well. safety precautions is maintained. Bed at low position, brakes locked, side rails upX3, bed alarm is on and call light is within reach. will continue to monitor.
[2021-06-05] MEDS: CEFEPIME 1 GM in IV D5W 50 ML IV SCH (03:11)
[2021-06-05] MEDS: BLOOD SUGAR DIAGNOSTIC 1 EACH STRIP VI SCH ×4 (06:35→22:04)
[2021-06-05] MEDS: INSULIN REGULAR, HUMAN 100 UNIT/ML 3 ML VIAL SQ PRN ×3 (06:46→17:24)
[2021-06-05] MEDS: NEPRO 1,000 ML BOTTLE GT PRN (06:55)
--- NOTE | 2021-06-05 07:00 | NUR ---
RN ms closing notes Pt is resting in bed comfortably. Pt is alert and orientedX1, responsive to verbal, tactile stimuli and able to open eyes. Respiration is normal in 1 L NC. No SOB. No S/S of distress noted. VS is stable. RU chest wall HD cath is clean, dry and intact. RU midline # 18 is clean, intact and flushes well. Gtube is clean, intact and running nephro @ 50 ml/hrX 20 hrs. Pt tolerated well. Skin care provided as ordered. Kept Pt clean, dry and comfortable. All needs met and attended. safety precautions is maintained. Bed at low position, brakes locked, side rails upX3, bed alarm is on and call light is within reach. will endorse to morning nurse for ADEEL.
--- NOTE | 2021-06-05 07:34 | NUR ---
MS RN OPENING NOTES RECEIVED PT IN BED, ASLEEP. A/O X 1. ON O2 AT 2 LPM, VIA NC. NO S/SX OF DISTRESS NOTED. IV ACCESS ON SADIA MIDLINE #18G PATENT AND RUNNING WELL. PT ON GT FEEDING, NEPRO 50ML/HR X 20HRS. ALL SAFETY MEASURES IN PLACE: BED LOCKED, IN LOWEST POSITION, SIDERAILS UP X2, CALL LIGHT WITHIN REACH. WILL CONTINUE TO MONITOR.
[2021-06-05 08:00] VITALS: BP 124/63
[2021-06-05 08:35] LABS: ALKALINE PHOSPHATASE 103 U/L (46-116); ASPARTATE AMINOTRANSFERASE 10 U/L (15-37); BILIRUBIN,TOTAL 0.4 mg/dL (0.2-1.0); CALCIUM, SERUM 9.8 mg/dL (8.5-10.1); CARBON DIOXIDE 26 mmol/L (21-32); CHLORIDE 98 mmol/L (98-107); CREATININE 3.9 mg/dL (0.6-1.3); GLUCOSE 172 mg/dL (74-106); MAGNESIUM 3.3 mg/dL (1.8-2.4); PHOSPHORUS 2.7 mg/dL (2.5-4.9); POTASSIUM 4.4 mmol/L (3.5-5.1); SODIUM SERUM 136 mmol/L (136-145); UREA NITROGEN, BLOOD 63 mg/dL (7-18)
[2021-06-05] MEDS: TRIHEXYPHENIDYL HCL 2 MG TABLET GT SCH ×2 (08:55→22:04)
[2021-06-05] MEDS: LEVOTHYROXINE SODIUM 100 MCG TABLET GT SCH (08:55)
[2021-06-05] MEDS: LIOTHYRONINE SODIUM (25 MCG) 25 MCG TABLET PO SCH (08:55)
[2021-06-05] MEDS: ZINC SULFATE 220 MG CAPSULE GT SCH (08:56)
[2021-06-05] MEDS: ACIDOPHILUS/BULGARICUS 1 EACH TAB.CHEW GT SCH ×2 (08:56→16:32)
[2021-06-05] MEDS: ASPIRIN 81 MG TAB.CHEW GT SCH (08:56)
[2021-06-05] MEDS: CALCIUM CARBONATE 500 MG TAB.CHEW GT SCH ×2 (08:56→16:33)
[2021-06-05] MEDS: ASCORBIC ACID 500 MG TABLET GT SCH (08:56)
[2021-06-05] MEDS: CARBIDOPA/LEVODOPA 25/100 MG 1 UDTAB GT SCH ×3 (08:56→16:33)
[2021-06-05] MEDS: MULTIVIT W/MINERALS 1 TAB TABLET PO SCH (08:57)
[2021-06-05] MEDS: AMIODARONE HCL 200 MG TABLET GT SCH ×2 (08:57→22:04)
[2021-06-05] MEDS: VALPROIC ACID 250 MG/5 ML UDC GT SCH ×2 (08:58→22:03)
[2021-06-05] MEDS: AMLODIPINE BESYLATE 5 MG TABLET GT SCH (08:58)
[2021-06-05] MEDS: LEVETIRACETAM SOL (5 ML) 100 MG/ML UDC GT SCH ×2 (08:58→22:03)
[2021-06-05] MEDS: PROSOURCE / PROSTAT (PYXIS) 30 ML UDC GT SCH ×3 (08:58→16:33)
[2021-06-05] MEDS: INSULIN LISPRO/ASPART 100 UNIT/ML CARTRIDGE SQ SCH ×3 (08:59→17:25)
[2021-06-05 09:19] LABS: BASOPHILS % (AUTO) 0.3 % (0.0-2.0); EOSINOPHILS % (AUTO) 0.8 % (0.0-6.0); HEMATOCRIT 22 % (33-45); HEMOGLOBIN 7.2 g/dL (11.5-14.8); LYMPHOCYTES # (AUTO) 1.4 K/uL (0.8-4.8); LYMPHOCYTES % (AUTO) 8.9 % (20.0-44.0); MEAN CORPUSCULAR HGB CONC 32 g/dl (31.0-36.0); MEAN CORPUSCULAR VOLUME 99 fL (82-100); MONOCYTES # (AUTO) 0.8 K/uL (0.1-1.30); MONOCYTES % (AUTO) 4.9 % (2.0-12.0); NEUTROPHILS # (AUTO) 13.4 K/uL (1.8-8.9); NEUTROPHILS % (AUTO) 85.1 % (43.0-81.0); PLATELET COUNT (AUTO) 347 K/uL (150-450); RED BLOOD CELL COUNT(AUTO) 2.25 MIL/uL (4.0-5.2); WHITE BLOOD COUNT (AUTO) 15.7 K/uL (4.3-11.0)
[2021-06-05] MEDS: DAKINS QUARTER STRENGTH (0.125%) 480 ML BOTTLE TOP SCH (09:24)
[2021-06-05] MEDS: APIXABAN 5 MG TABLET PO SCH ×2 (09:28→16:34)
[2021-06-05 09:29] LABS: ALANINE AMINOTRANSFERASE < 6 U/L (12-78); TOTAL PROTEIN, SERUM 6.3 g/dL (6.4-8.2)
[2021-06-05] MEDS ORDERED: CEFEPIME 1 GM in IV D5W 50 ML IV SCH (10:00)
[2021-06-05 16:00] VITALS: BP 149/70
--- NOTE | 2021-06-05 18:32 | NUR ---
MS RN CLOSING NOTE PATIENT IN BED, RESTING COMFORTABLY. A/O X 1, RESPONSIVE TO VERBAL STIMULUS; ABLE TO OPEN EYES. ON O2 AT 2L, BREATHING IS EVEN AND NONLABORED. NO S/S OF DISTRESS NOTED. RU CHEST WALL HD CATH IS CLEAN, DRY, AND INTACT. IV ACCES ON SADIA MIDLINE #18 IS INTACT AND PATENT, FLUSHES WELL. G-TUBE IS CLEAN AND INTACT AND RUNNING NEPHRO @ 50 ML/HR X 20 HOURS. KEPT PT CLEAN, DRY, AND COMFORTABLE. SAFETY PRECAUTIONS IN PLACE: BED AT LOW, LOCKED POSITION, SIDERAILS UP X 2, BED ALARM ON, CALL LIGHT WITHIN REACH. WILL ENDORSE TO YOUTH ASSOCIATE NURSE FOR ADEEL.
[2021-06-05 20:00] VITALS: BP 117/61
[2021-06-05] MEDS: ATORVASTATIN 10 MG TABLET GT SCH (22:03)
[2021-06-05] MEDS: INSULIN GLARGINE, 100 UNIT/ML CARTRIDGE SQ SCH (22:56)
[2021-06-05] MEDS: *INSULIN REGULAR(HUMULIN R)HUM 100 UNIT/ML VIAL SQ PRN (22:59)
[2021-06-06] VITALS (9 sets, daily range): BP systolic 90–116; BP diastolic 43–53
[2021-06-06] MEDS: CEFEPIME 1 GM in IV D5W 50 ML IV SCH (00:41)
[2021-06-06] MEDS: BLOOD SUGAR DIAGNOSTIC 1 EACH STRIP VI SCH ×4 (06:05→21:20)
[2021-06-06] MEDS: INSULIN REGULAR, HUMAN 100 UNIT/ML 3 ML VIAL SQ PRN ×3 (06:27→17:33)
--- NOTE | 2021-06-06 06:36 | NUR ---
MS RN NOTES PT OPENS EYES, NON VERBAL, RESPONDS TO TACTILE AND PAINFUL STIMULI. NOT IN ANY DISTRESS. NO SOB NOTED. NO S/SX OF ANY PAIN OR DISCOMFORT AT THIS TIME. WITH IV-HL PATENT & INTACT. AM CARE DONE. MONITORED ACCORDINGLY. CALL LIGHT WITHIN REACH. BED IN LOWEST POSITION. SR UP X 3 WITH BED ALARM ON FOR SAFETY. WILL ENDORSE TO NEXT SHIFT.
[2021-06-06 07:16] LABS: BASOPHILS # (AUTO) 0.1 K/uL (0.0-0.2); BASOPHILS % (AUTO) 0.8 % (0.0-2.0); EOSINOPHILS % (AUTO) 0.8 % (0.0-6.0); HEMATOCRIT 22 % (33-45); LYMPHOCYTES # (AUTO) 1.9 K/uL (0.8-4.8); LYMPHOCYTES % (AUTO) 10.8 % (20.0-44.0); MEAN CORPUSCULAR HGB CONC 32 g/dl (31.0-36.0); MEAN CORPUSCULAR VOLUME 98 fL (82-100); MONOCYTES # (AUTO) 1.1 K/uL (0.1-1.30); MONOCYTES % (AUTO) 6.1 % (2.0-12.0); NEUTROPHILS # (AUTO) 14.2 K/uL (1.8-8.9); NEUTROPHILS % (AUTO) 81.5 % (43.0-81.0); PLATELET COUNT (AUTO) 296 K/uL (150-450); RED BLOOD CELL COUNT(AUTO) 2.19 MIL/uL (4.0-5.2); WHITE BLOOD COUNT (AUTO) 17.4 K/uL (4.3-11.0)
[2021-06-06 07:43] LABS: HEMOGLOBIN 6.9 g/dL (11.5-14.8)
--- NOTE | 2021-06-06 07:43 | NUR ---
RN NOTE OTIS FROM LAB CALLED REGARDING A CRITICAL VALUE, Hgb is 6.9. READ BACK COMPLETED. MD ROMAIN HOLLYE IS AWARE. AWAITING FOR NEW ORDERS. CHARGE NURSE WAS ALSO INFORMED.
[2021-06-06 07:46] LABS: ALBUMIN 1.8 g/dL (3.4-5.0); BILIRUBIN,TOTAL 0.3 mg/dL (0.2-1.0); CALCIUM, SERUM 9.3 mg/dL (8.5-10.1); CREATININE 2.9 mg/dL (0.6-1.3); MAGNESIUM 3.1 mg/dL (1.8-2.4); PHOSPHORUS 2.7 mg/dL (2.5-4.9); POTASSIUM 4.2 mmol/L (3.5-5.1); TOTAL PROTEIN, SERUM 6.1 g/dL (6.4-8.2)
[2021-06-06 07:47] LABS: EOSINOPHILS % (MANUAL) 1 % (0-4); LYMPHOCYTES % (MANUAL) 12 % (16-48); MONOCYTES % (MANUAL) 2 % (0-11.0); NEUTROPHILS % (MANUAL) 85 (42-76)
[2021-06-06] MEDS: NEPRO 1,000 ML BOTTLE GT PRN (08:01)
--- NOTE | 2021-06-06 08:02 | NUR ---
MS RN OPENING NOTES RECEIVED PATIENT IN BED, ASLEEP. A/O X 1. ON O2 AT 2 LPM, VIA NC. NO S/SX OF DISTRESS NOTED. IV ACCESS ON SADIA MIDLINE #18G PATENT AND RUNNING WELL. PATIENT ON GT FEEDING, NEPRO 50ML/HR X 20HRS. SAFETY MEASURES IN PLACE: BED LOCKED, IN LOWEST POSITION, SIDERAILS UP X2, CALL LIGHT WITHIN REACH. WILL CONTINUE TO MONITOR.
[2021-06-06] MEDS: PROSOURCE / PROSTAT (PYXIS) 30 ML UDC GT SCH ×3 (08:42→16:25)
[2021-06-06] MEDS: ASPIRIN 81 MG TAB.CHEW GT SCH (08:42)
[2021-06-06] MEDS: LEVOTHYROXINE SODIUM 100 MCG TABLET GT SCH (08:43)
[2021-06-06] MEDS: CALCIUM CARBONATE 500 MG TAB.CHEW GT SCH ×2 (08:43→16:26)
[2021-06-06] MEDS: ACIDOPHILUS/BULGARICUS 1 EACH TAB.CHEW GT SCH ×2 (08:44→16:26)
[2021-06-06] MEDS: CARBIDOPA/LEVODOPA 25/100 MG 1 UDTAB GT SCH ×3 (08:44→16:26)
[2021-06-06] MEDS: LEVETIRACETAM SOL (5 ML) 100 MG/ML UDC GT SCH ×2 (08:44→21:17)
[2021-06-06] MEDS: MULTIVIT W/MINERALS 1 TAB TABLET PO SCH (08:44)
[2021-06-06] MEDS: ASCORBIC ACID 500 MG TABLET GT SCH (08:44)
[2021-06-06] MEDS: VALPROIC ACID 250 MG/5 ML UDC GT SCH ×2 (08:44→21:17)
[2021-06-06] MEDS: LIOTHYRONINE SODIUM (25 MCG) 25 MCG TABLET PO SCH (08:44)
[2021-06-06] MEDS: AMIODARONE HCL 200 MG TABLET GT SCH ×2 (08:45→21:00)
[2021-06-06] MEDS: AMLODIPINE BESYLATE 5 MG TABLET GT SCH (08:45)
[2021-06-06] MEDS: ZINC SULFATE 220 MG CAPSULE GT SCH (08:46)
[2021-06-06] MEDS: APIXABAN 5 MG TABLET PO SCH ×2 (08:47→17:00)
[2021-06-06] MEDS: TRIHEXYPHENIDYL HCL 2 MG TABLET GT SCH ×2 (08:50→21:19)
--- NOTE | 2021-06-06 09:05 | NUR ---
RN NOTES HELD ELIQUIS DUE TO LOW HGB LEVEL OF 6.9.
[2021-06-06] MEDS: DAKINS QUARTER STRENGTH (0.125%) 480 ML BOTTLE TOP SCH (09:21)
[2021-06-06] MEDS: INSULIN LISPRO/ASPART 100 UNIT/ML CARTRIDGE SQ SCH ×3 (09:36→17:29)
[2021-06-06 09:59] LABS: IRON, SERUM 17 ug/dl (50-175); TOTAL IRON BINDING CAPACITY 79 ug/dl (250-450)
--- NOTE | 2021-06-06 10:01 | NUR ---
RN NOTE DR ROMAIN HOLLEY ORDERED TO TRANSFUSE 1 UNIT OF PRBC. RECEIVED ORDER AND CARRIED OUT.
--- NOTE | 2021-06-06 10:15 | NUR ---
RN NOTE PT IS UNABLE TO SIGN. OBTAINED BLOOD TRANSFUSION CONSENT VIA TELEPHONE FROM DTR CHRISTINA CRUZ.
[2021-06-06 10:32] LABS: FERRITIN 2379 ng/mL (8-388)
--- NOTE | 2021-06-06 13:11 | NUR ---
RN NOTE STARTED BLOOD TRANSFUSION AT 1311. VERIFIED BY 2 RN's. VS BP 97/51 KS 98 RR 18 T 98.9 NO OTHER SIGNS OF HEMOLYTIC REACTIONS WAS NOTED. WILL CONTINUE TO MONITOR
--- NOTE | 2021-06-06 16:45 | NUR ---
RN NOTE BLOOD TRANSFUSION WAS ENDED. TOLERATED WELL. VS BP 91/51 SC 81 RR 16 T 98.4
--- NOTE | 2021-06-06 18:17 | NUR ---
MS RN CLOSING NOTE PATIENT IN BED, ASLEEP. A/O X 1. ON O2 AT 2 LPM, VIA NC. NO S/SX OF DISTRESS NOTED. IV ACCESS ON SADIA MIDLINE #18 PATENT AND RUNNING WELL. PATIENT ON GT FEEDING, NEPRO 50ML/HR X 20HRS. SAFETY MEASURES IN PLACE: BED LOCKED, IN LOWEST POSITION, SIDERAILS UP X2, CALL LIGHT WITHIN REACH. WILL ENDORSE TO BUSINESS DEVELOPMENT MANAGER NURSE FOR ADEEL
[2021-06-06] MEDS: ATORVASTATIN 10 MG TABLET GT SCH (21:17)
[2021-06-06] MEDS: INSULIN GLARGINE, 100 UNIT/ML CARTRIDGE SQ SCH (21:20)
[2021-06-07] MEDS: CEFEPIME 1 GM in IV D5W 50 ML IV SCH (00:20)
[2021-06-07] MEDS: BLOOD SUGAR DIAGNOSTIC 1 EACH STRIP VI SCH ×4 (06:31→22:12)
[2021-06-07] MEDS: *INSULIN REGULAR(HUMULIN R)HUM 100 UNIT/ML VIAL SQ PRN ×2 (06:33→22:12)
--- NOTE | 2021-06-07 06:36 | NUR ---
MS RN NOTES PT OPENS EYES, NON VERBAL, RESPONDS TO TACTILE AND PAINFUL STIMULI. NOT IN ANY DISTRESS. NO SOB NOTED. NO S/SX OF ANY PAIN OR DISCOMFORT AT THIS TIME. WITH IV-HL PATENT & INTACT. WITH GTF INFUSING WELL. AM CARE DONE. MONITORED ACCORDINGLY. CALL LIGHT WITHIN REACH. BED IN LOWEST POSITION. SR UP X 3 WITH BED ALARM ON FOR SAFETY. WILL ENDORSE TO NEXT SHIFT.
[2021-06-07 07:16] LABS: BASOPHILS % (AUTO) 0.3 % (0.0-2.0); EOSINOPHILS % (AUTO) 0.7 % (0.0-6.0); HEMATOCRIT 22 % (33-45); HEMOGLOBIN 7.1 g/dL (11.5-14.8); LYMPHOCYTES # (AUTO) 1.5 K/uL (0.8-4.8); LYMPHOCYTES % (AUTO) 10.4 % (20.0-44.0); MEAN CORPUSCULAR HGB CONC 33 g/dl (31.0-36.0); MEAN CORPUSCULAR VOLUME 98 fL (82-100); MONOCYTES # (AUTO) 0.9 K/uL (0.1-1.30); MONOCYTES % (AUTO) 6.7 % (2.0-12.0); NEUTROPHILS # (AUTO) 11.7 K/uL (1.8-8.9); NEUTROPHILS % (AUTO) 81.9 % (43.0-81.0); PLATELET COUNT (AUTO) 291 K/uL (150-450); RED BLOOD CELL COUNT(AUTO) 2.24 MIL/uL (4.0-5.2); WHITE BLOOD COUNT (AUTO) 14.3 K/uL (4.3-11.0)
[2021-06-07 07:26] LABS: CALCIUM, SERUM 9.8 mg/dL (8.5-10.1); CREATININE 3.6 mg/dL (0.6-1.3); MAGNESIUM 3.1 mg/dL (1.8-2.4); PHOSPHORUS 3.4 mg/dL (2.5-4.9); POTASSIUM 4.2 mmol/L (3.5-5.1)
--- NOTE | 2021-06-07 07:59 | NUR ---
MS RN OPENING NOTES RECEIVED PATIENT IN BED, OPEN EYES, NON VERBAL, RESPONDS TO TACTILE AND PAINFUL STIMULI. PATIENT ON 2 LPM O2 VIA NASAL CANULA PRESENT AND INTACT, NOT IN ANY DISTRESS. NO S/SX OF ANY PAIN OR DISCOMFORT AT THIS TIME. WITH IV-HL PATENT & INTACT. WITH GTF INFUSING WELL- NEPHRO @ 50 MLS/HR. SAFETY PRECAUTIONS IN PLACE; BED IN LOW POSITION AND LOCKED, RAILS UP X2, CALL LIGHT WITHIN REACH. WILL CONTINUE TO MONITOR PATIENT.
[2021-06-07 08:00] VITALS: BP 111/47
--- NOTE | 2021-06-07 08:30 | NUR ---
MS RN NOTES HD STARTED BP MEDS HELD
[2021-06-07] MEDS: PROSOURCE / PROSTAT (PYXIS) 30 ML UDC GT SCH ×3 (08:31→16:26)
[2021-06-07] MEDS: CALCIUM CARBONATE 500 MG TAB.CHEW GT SCH ×2 (08:32→16:26)
[2021-06-07] MEDS: ASPIRIN 81 MG TAB.CHEW GT SCH (08:32)
[2021-06-07] MEDS: ACIDOPHILUS/BULGARICUS 1 EACH TAB.CHEW GT SCH ×2 (08:32→16:26)
[2021-06-07] MEDS: LIOTHYRONINE SODIUM (25 MCG) 25 MCG TABLET PO SCH (08:32)
[2021-06-07] MEDS: VALPROIC ACID 250 MG/5 ML UDC GT SCH ×2 (08:32→21:19)
[2021-06-07] MEDS: LEVOTHYROXINE SODIUM 100 MCG TABLET GT SCH (08:32)
[2021-06-07] MEDS: DAKINS QUARTER STRENGTH (0.125%) 480 ML BOTTLE TOP SCH (08:33)
[2021-06-07] MEDS: APIXABAN 5 MG TABLET PO SCH ×2 (08:33→16:26)
[2021-06-07] MEDS: LEVETIRACETAM SOL (5 ML) 100 MG/ML UDC GT SCH ×2 (08:33→21:19)
[2021-06-07] MEDS: MULTIVIT W/MINERALS 1 TAB TABLET PO SCH (08:33)
[2021-06-07] MEDS: ZINC SULFATE 220 MG CAPSULE GT SCH (08:33)
[2021-06-07] MEDS: CARBIDOPA/LEVODOPA 25/100 MG 1 UDTAB GT SCH ×3 (08:33→16:26)
[2021-06-07] MEDS: ASCORBIC ACID 500 MG TABLET GT SCH (08:33)
[2021-06-07] MEDS: AMLODIPINE BESYLATE 5 MG TABLET GT SCH (08:34)
[2021-06-07] MEDS: AMIODARONE HCL 200 MG TABLET GT SCH ×2 (08:34→21:00)
[2021-06-07] MEDS: TRIHEXYPHENIDYL HCL 2 MG TABLET GT SCH ×2 (08:37→21:19)
[2021-06-07] MEDS: INSULIN LISPRO/ASPART 100 UNIT/ML CARTRIDGE SQ SCH ×3 (09:46→18:26)
--- NOTE | 2021-06-07 11:45 | NUR ---
MS RN NOTES HD DONE. 2 L OUT VS WITHIN NORMAL LIMITS.
[2021-06-07] MEDS: VANCOMYCIN 500 MG in IV D5W 100 ML IV PRN (12:14)
--- NOTE | 2021-06-07 12:39 | NUR ---
MS RN NOTES 1300 HUMOLOG NON-ADMINISTERED. PATIENT OFF FEEDING FOR 4 HRS AND BS 149.
[2021-06-07] MEDS: NEPRO 1,000 ML BOTTLE GT PRN (14:45)
[2021-06-07] MEDS: INSULIN REGULAR, HUMAN 100 UNIT/ML 3 ML VIAL SQ PRN (17:09)
--- NOTE | 2021-06-07 18:44 | NUR ---
MS RN CLOSING NOTES PATIENT REMAINS IN BED, ASLEEP. PATIENT ON 2 LPM O2 VIA NASAL CANULA PRESENT AND INTACT, NOT IN ANY DISTRESS. NO S/SX OF ANY PAIN OR DISCOMFORT DURING SHIFT. WITH IV-HL PATENT & INTACT. WITH GTF INFUSING WELL- NEPHRO @ 50 MLS/HR. ALL NEEDS ATTENDED DURING THE DAY. SAFETY PRECAUTIONS IN PLACE; BED IN LOW POSITION AND LOCKED, RAILS UP X2, CALL LIGHT WITHIN REACH. WILL ENDORSE TO COIN TELLER NURSE.
--- NOTE | 2021-06-07 19:17 | NUR ---
RN OPENING NOTES PATIENT IN BED, ASLEEP. PATIENT ON 2 LPM O2 VIA NASAL CANULA PRESENT AND INTACT, NOT IN ANY DISTRESS. NO S/SX OF ANY PAIN OR DISCOMFORT AT THIS TIME WITH IV-HL PATENT & INTACT. WITH GTF INFUSING WELL- NEPHRO @ 50 MLS/HR. ALL NEEDS ATTENDED DURING THE DAY. SAFETY PRECAUTIONS IN PLACE; BED IN LOW POSITION AND LOCKED, RAILS UP X2, CALL LIGHT WITHIN REACH. WILL CONTINUE TO MONITOR.
[2021-06-07 20:00] VITALS: BP 104/55
[2021-06-07] MEDS: ATORVASTATIN 10 MG TABLET GT SCH (21:19)
[2021-06-07] MEDS: INSULIN GLARGINE, 100 UNIT/ML CARTRIDGE SQ SCH (22:12)
[2021-06-08] MEDS: CEFEPIME 1 GM in IV D5W 50 ML IV SCH (00:18)
[2021-06-08] MEDS: INSULIN REGULAR, HUMAN 100 UNIT/ML 3 ML VIAL SQ PRN ×2 (06:35→16:57)
[2021-06-08] MEDS: BLOOD SUGAR DIAGNOSTIC 1 EACH STRIP VI SCH ×4 (06:39→21:57)
--- NOTE | 2021-06-08 06:50 | NUR ---
RN NOTES PATIENT IN BED, ASLEEP. PATIENT ON 2 LPM O2 VIA NASAL CANULA PRESENT AND INTACT, NOT IN ANY DISTRESS. NO S/SX OF ANY PAIN OR DISCOMFORT AT THIS TIME WITH IV-HL PATENT & INTACT. WITH GTF INFUSING WELL- NEPHRO @ 50 MLS/HR OFF AT 0700 CONTINUE AT 1100. ALL NEEDS ATTENDED DURING THE SHIFT ALL DUE MEDS GIVEN AND TOLERATED WELL. SAFETY PRECAUTIONS IN PLACE; BED IN LOW POSITION AND LOCKED, RAILS UP X2, CALL LIGHT WITHIN REACH. WILL ENDORSE CARE TO DAY SHIFT NURSE.
[2021-06-08 07:14] LABS: BASOPHILS % (AUTO) 0.4 % (0.0-2.0); EOSINOPHILS % (AUTO) 1.3 % (0.0-6.0); HEMATOCRIT 25 % (33-45); HEMOGLOBIN 7.9 g/dL (11.5-14.8); LYMPHOCYTES # (AUTO) 1.4 K/uL (0.8-4.8); LYMPHOCYTES % (AUTO) 11.5 % (20.0-44.0); MEAN CORPUSCULAR HGB CONC 31 g/dl (31.0-36.0); MEAN CORPUSCULAR VOLUME 102 fL (82-100); MONOCYTES # (AUTO) 0.9 K/uL (0.1-1.30); MONOCYTES % (AUTO) 6.9 % (2.0-12.0); NEUTROPHILS # (AUTO) 9.9 K/uL (1.8-8.9); NEUTROPHILS % (AUTO) 79.9 % (43.0-81.0); PLATELET COUNT (AUTO) 257 K/uL (150-450); RED BLOOD CELL COUNT(AUTO) 2.46 MIL/uL (4.0-5.2); WHITE BLOOD COUNT (AUTO) 12.4 K/uL (4.3-11.0)
--- NOTE | 2021-06-08 07:30 | NUR ---
MS RN OPENING NOTE RECEIVED PT IN BED WITH EYES CLOSED. A/O X1 AND OPENS EYES. PT ON 2LPM O2 VIA NC TOLERATING WELL. NO SOB OR S/S OF RESPIRATORY DISTRESS NOTED. PT HAS NO SIGNS OF FACIAL GRIMACING AT THIS TIME. IV ACCESS IN SADIA MIDLINE, INTACT AND PATENT. PT NOTED WITH GTUBE INTACT AND PATENT. PT NOTED WITH RCW HD CATH INTACT. SAFETY PRECAUTIONS MAINTAINED. BED IN LOWEST LOCKED POSITION, HOB ELEVATED, SIDE RAILS UP X2. CALL LIGHT AND TABLE WITHIN REACH. WILL CONTINUE TO MONITOR.
[2021-06-08 07:35] LABS: ALBUMIN 1.6 g/dL (3.4-5.0); BILIRUBIN,TOTAL 0.3 mg/dL (0.2-1.0); CALCIUM, SERUM 9.2 mg/dL (8.5-10.1); CREATININE 2.8 mg/dL (0.6-1.3); MAGNESIUM 3.1 mg/dL (1.8-2.4); PHOSPHORUS 3.1 mg/dL (2.5-4.9); POTASSIUM 4.3 mmol/L (3.5-5.1)
[2021-06-08] MEDS: LIOTHYRONINE SODIUM (25 MCG) 25 MCG TABLET PO SCH (07:44)
[2021-06-08] MEDS: LEVOTHYROXINE SODIUM 100 MCG TABLET GT SCH (07:45)
[2021-06-08 08:00] VITALS: BP 116/60
[2021-06-08] MEDS: ASPIRIN 81 MG TAB.CHEW GT SCH (08:24)
[2021-06-08] MEDS: LEVETIRACETAM SOL (5 ML) 100 MG/ML UDC GT SCH ×2 (08:24→21:57)
[2021-06-08] MEDS: MULTIVIT W/MINERALS 1 TAB TABLET PO SCH (08:24)
[2021-06-08] MEDS: ACIDOPHILUS/BULGARICUS 1 EACH TAB.CHEW GT SCH ×2 (08:24→16:19)
[2021-06-08] MEDS: ASCORBIC ACID 500 MG TABLET GT SCH (08:24)
[2021-06-08] MEDS: VALPROIC ACID 250 MG/5 ML UDC GT SCH ×2 (08:24→21:57)
[2021-06-08] MEDS: CARBIDOPA/LEVODOPA 25/100 MG 1 UDTAB GT SCH ×3 (08:24→16:19)
[2021-06-08] MEDS: AMLODIPINE BESYLATE 5 MG TABLET GT SCH (08:25)
[2021-06-08] MEDS: AMIODARONE HCL 200 MG TABLET GT SCH ×2 (08:25→21:56)
[2021-06-08] MEDS: APIXABAN 5 MG TABLET PO SCH ×2 (08:29→16:21)
[2021-06-08] MEDS: PROSOURCE / PROSTAT (PYXIS) 30 ML UDC GT SCH ×3 (08:30→16:23)
[2021-06-08] MEDS: CALCIUM CARBONATE 500 MG TAB.CHEW GT SCH ×2 (08:32→16:18)
[2021-06-08] MEDS: ZINC SULFATE 220 MG CAPSULE GT SCH (08:32)
[2021-06-08] MEDS: TRIHEXYPHENIDYL HCL 2 MG TABLET GT SCH ×2 (08:35→21:56)
[2021-06-08] MEDS: INSULIN LISPRO/ASPART 100 UNIT/ML CARTRIDGE SQ SCH ×3 (08:45→17:52)
[2021-06-08] MEDS: DAKINS QUARTER STRENGTH (0.125%) 480 ML BOTTLE TOP SCH (09:12)
--- NOTE | 2021-06-08 11:00 | NUR ---
RN NOTE GTUBE RESIDUAL NOTED AT 5ML. RESTARTED GTUBE FEEDING OF NEPRO AT 50ML/HR. GTUBE INTACT AND PATENT. PT IS TOLERATING WELL.
--- NOTE | 2021-06-08 12:43 | NUR ---
RN NOTE BS NOTED AT 111. WITHHELD LISPRO/ASPART 10 UNITS SQ PER ORDER. WILL CONTINUE TO MONITOR PT.
[2021-06-08 16:00] VITALS: BP 134/77
--- NOTE | 2021-06-08 17:53 | NUR ---
RN NOTE BS NOTED AT 138. WITHHELD LISPRO/ASPART 10 UNITS SQ PER ORDER. WILL CONTINUE TO MONITOR PT.
--- NOTE | 2021-06-08 18:39 | NUR ---
MS RN CLOSING NOTE PT IS IN BED WITH EYES CLOSED. A/O X1 AND OPENS EYES. PT ON 2LPM O2 VIA NC TOLERATING WELL. NO SOB OR S/S OF RESPIRATORY DISTRESS NOTED. PT HAS NO SIGNS OF FACIAL GRIMACING AT THIS TIME. IV ACCESS IN SADIA MIDLINE, INTACT AND PATENT. PT NOTED WITH GTUBE WITH FEEDING OF NEPRO AT 50ML/HR, INTACT AND PATENT. PT NOTED WITH RCW HD CATH INTACT. ALL NEEDS HAVE BEEN MET. SAFETY PRECAUTIONS MAINTAINED AT ALL TIMES. BED IN LOWEST LOCKED POSITION, HOB ELEVATED, SIDE RAILS UP X2. CALL LIGHT AND TABLE WITHIN REACH. WILL ENDORSE TO ONCOMING NURSE FOR ADEEL.
--- NOTE | 2021-06-08 19:30 | NUR ---
MS/RN OPENING NOTE RECEIVED PATIENT SLEEPING IN BED. ALERT AND ORIENTED X 1 - ABLE TO OPEN EYES. CONTINUES ON O2 3L VIA NC WITH NO S/SX OF RESPIRATORY DISTRESS NOTED. NO S/SX OF PAIN NOTED AT THIS TIME. IV ACCESS TO RIGHT UPPER ARM MIDLINE INTACT, PATENT AND SALINE LOCKED. RIGHT UPPER CHEST WALL HD CATH INTACT. GTUBE PRESENT WITH DRESSING CLEAN, DRY AND INTACT. NEPRO RUNNING AT 50ML/HR X 20HRS. NO RESIDUAL NOTED AT THIS TIME. CALL LIGHT WITHIN REACH. ASPIRATION, FALL AND SAFETY PRECAUTIONS MAINTAINED. WILL CONTINUE TO MONITOR.
[2021-06-08 20:00] VITALS: BP 97/48
[2021-06-08] MEDS: ATORVASTATIN 10 MG TABLET GT SCH (21:57)
[2021-06-08] MEDS: INSULIN GLARGINE, 100 UNIT/ML CARTRIDGE SQ SCH (22:13)
[2021-06-08] MEDS: *INSULIN REGULAR(HUMULIN R)HUM 100 UNIT/ML VIAL SQ PRN (22:14)
[2021-06-09] VITALS (8 sets, daily range): BP systolic 100–127; BP diastolic 47–64
[2021-06-09] MEDS: CEFEPIME 1 GM in IV D5W 50 ML IV SCH ×2 (00:14→23:25)
--- NOTE | 2021-06-09 06:30 | NUR ---
MS/RN CLOSING NOTE PATIENT CURRENTLY SLEEPING IN BED. ALERT AND ORIENTED X 1 - ABLE TO OPEN EYES. CONTINUES ON O2 3L VIA NC WITH NO S/SX OF RESPIRATORY DISTRESS NOTED. NO S/SX OF PAIN NOTED AT THIS TIME. IV ACCESS TO RIGHT UPPER ARM MIDLINE INTACT, PATENT AND SALINE LOCKED. RIGHT UPPER CHEST WALL HD CATH INTACT. GTUBE PRESENT WITH NO RESIDUAL NOTED. NEPRO RUNNING AT 50ML/HR X 20HRS. CALL LIGHT WITHIN REACH. ASPIRATION, FALL AND SAFETY PRECAUTIONS MAINTAINED. WILL ENDORSE PLAN OF CARE TO ONCOMING SHIFT.
[2021-06-09] MEDS: INSULIN REGULAR, HUMAN 100 UNIT/ML 3 ML VIAL SQ PRN ×3 (06:42→17:19)
--- NOTE | 2021-06-09 07:10 | NUR ---
RN OPENING NOTE RECEIVED PATIENT IN BED, AWAKE. A/O X1. NON VERBAL, OPENS EYES. ON 02 AT LPM VIA NC. NO SON NOTED. IN NO APPARENT DISTRESS. IV ACCESS ON SADIA MIDLINE, INTACT AND PATENT. RCW HD CATH C/D/I. GT NEPRO IS CURRENTLY OFF, WILL CONTINUE AT 11 AM ORDERED. SAFETY MEASURES MAINTAINED. BED IN LOWEST POSITION, BRAKES LOCKED. SIDE RAILS UP X2. CALL LIGHT WITHIN [facility]. WILL CONTINUE PLAN OF CARE.
[2021-06-09] MEDS: BLOOD SUGAR DIAGNOSTIC 1 EACH STRIP VI SCH ×4 (07:20→22:43)
[2021-06-09] MEDS: LEVETIRACETAM SOL (5 ML) 100 MG/ML UDC GT SCH ×2 (08:54→21:55)
[2021-06-09] MEDS: VALPROIC ACID 250 MG/5 ML UDC GT SCH ×2 (08:54→21:55)
[2021-06-09] MEDS: ACIDOPHILUS/BULGARICUS 1 EACH TAB.CHEW GT SCH ×2 (08:54→16:27)
[2021-06-09] MEDS: ASCORBIC ACID 500 MG TABLET GT SCH (08:55)
[2021-06-09] MEDS: LEVOTHYROXINE SODIUM 100 MCG TABLET GT SCH (08:55)
[2021-06-09] MEDS: CARBIDOPA/LEVODOPA 25/100 MG 1 UDTAB GT SCH ×3 (08:55→16:27)
[2021-06-09] MEDS: ZINC SULFATE 220 MG CAPSULE GT SCH (08:55)
[2021-06-09] MEDS: ASPIRIN 81 MG TAB.CHEW GT SCH (08:55)
[2021-06-09] MEDS: MULTIVIT W/MINERALS 1 TAB TABLET PO SCH (08:55)
[2021-06-09] MEDS: CALCIUM CARBONATE 500 MG TAB.CHEW GT SCH ×2 (08:55→16:27)
[2021-06-09] MEDS: LIOTHYRONINE SODIUM (25 MCG) 25 MCG TABLET PO SCH (08:55)
[2021-06-09] MEDS: APIXABAN 5 MG TABLET PO SCH ×2 (08:57→16:27)
[2021-06-09] MEDS: AMIODARONE HCL 200 MG TABLET GT SCH ×2 (08:57→21:55)
[2021-06-09] MEDS: AMLODIPINE BESYLATE 5 MG TABLET GT SCH (08:57)
[2021-06-09] MEDS: TRIHEXYPHENIDYL HCL 2 MG TABLET GT SCH ×2 (08:58→21:55)
[2021-06-09] MEDS: PROSOURCE / PROSTAT (PYXIS) 30 ML UDC GT SCH ×3 (09:14→16:26)
[2021-06-09] MEDS: INSULIN LISPRO/ASPART 100 UNIT/ML CARTRIDGE SQ SCH ×3 (09:16→17:19)
[2021-06-09] MEDS: DAKINS QUARTER STRENGTH (0.125%) 480 ML BOTTLE TOP SCH (09:18)
[2021-06-09 14:36] LABS: BASOPHILS % (AUTO) 0.2 % (0.0-2.0); EOSINOPHILS % (AUTO) 0.9 % (0.0-6.0); HEMATOCRIT 21 % (33-45); MONOCYTES # (AUTO) 0.5 K/uL (0.1-1.30)
[2021-06-09 14:44] LABS: LYMPHOCYTES # (AUTO) 1.2 K/uL (0.8-4.8); LYMPHOCYTES % (AUTO) 10.4 % (20.0-44.0); MEAN CORPUSCULAR HGB CONC 33 g/dl (31.0-36.0); MEAN CORPUSCULAR VOLUME 97 fL (82-100); MONOCYTES % (AUTO) 4.6 % (2.0-12.0); NEUTROPHILS # (AUTO) 9.6 K/uL (1.8-8.9); NEUTROPHILS % (AUTO) 83.9 % (43.0-81.0); PLATELET COUNT (AUTO) 284 K/uL (150-450); WHITE BLOOD COUNT (AUTO) 11.4 K/uL (4.3-11.0)
[2021-06-09 14:50] LABS: ALANINE AMINOTRANSFERASE < 6 U/L (12-78); ALBUMIN 1.6 g/dL (3.4-5.0); ALKALINE PHOSPHATASE 105 U/L (46-116); ASPARTATE AMINOTRANSFERASE 9 U/L (15-37); BILIRUBIN,TOTAL 0.3 mg/dL (0.2-1.0); CALCIUM, SERUM 9.2 mg/dL (8.5-10.1); CARBON DIOXIDE 28 mmol/L (21-32); CHLORIDE 99 mmol/L (98-107); CREATININE 3.8 mg/dL (0.6-1.3); GLUCOSE 197 mg/dL (74-106); MAGNESIUM 3.2 mg/dL (1.8-2.4); PHOSPHORUS 3.4 mg/dL (2.5-4.9); POTASSIUM 4.4 mmol/L (3.5-5.1); SODIUM SERUM 132 mmol/L (136-145); TOTAL PROTEIN, SERUM 5.9 g/dL (6.4-8.2)
[2021-06-09 14:51] LABS: UREA NITROGEN, BLOOD 87 mg/dL (7-18)
[2021-06-09 15:26] LABS: HEMOGLOBIN 6.9 g/dL (11.5-14.8)
--- NOTE | 2021-06-09 15:28 | NUR ---
RN GRAHAM FREITAS FROM THE LAB CALLED REGARDING CRITICAL VALUE H/H 6.9/. DR ROMAIN HOLLEY IS MADE AWARE. HE ORDERED 1 UNIT OF PRBC. READ BACK AND COMPLETED.
[2021-06-09 15:45] LABS: EOSINOPHILS % (MANUAL) 2 % (0-4); LYMPHOCYTES % (MANUAL) 8 % (16-48); MONOCYTES % (MANUAL) 9 % (0-11.0); NEUTROPHILS % (MANUAL) 81 (42-76)
--- NOTE | 2021-06-09 16:27 | NUR ---
RN NOTE HELD ELIQUIS 5 MG PO D/T LOW H/H.
[2021-06-09] MEDS: NEPRO 1,000 ML BOTTLE GT PRN (17:20)
--- NOTE | 2021-06-09 18:08 | NUR ---
RN CLOSING NOTE PATIENT IN BED. A/O X1. REMAINS NON VERBAL, OPENS EYES. ON 02 AT LPM VIA NC. NO SOB NOTED. NO S/S OF RESPIRATORY DISTRESS. IV ACCESS ON SADIA MIDLINE, INTACT AND PATENT. RCW HD CATH C/D/I. GT NEPRO RUNNING X 50 ML/HR. DUE MEDS GIVEN ORDERED. SAFETY MEASURES MAINTAINED. BED IN LOWEST POSITION, BRAKES LOCKED. SIDE RAILS UP X2. KEPT CALL LIGHT WITHIN [facility]. WILL ENDORSE CONTINUITY OF CARE TO ONCOMING SHIFT.
--- NOTE | 2021-06-09 19:20 | NUR ---
MS/RN OPENING NOTE RECEIVED PATIENT SLEEPING IN BED. ALERT AND ORIENTED X1 - ABLE TO OPEN EYES. NO S/SX OF PAIN NOTED AT THIS TIME. CONTINUES ON O2 3L VIA NC WITH NO S/SX OF RESPIRATORY DISTRESS NOTED. IV ACCESS TO RIGHT UPPER ARM MIDLINE INTACT, PATENT AND SALINE LOCKED. RIGHT UPPER CHEST WALL HD CATH INTACT. CONTINUES ON GTUBE FEED WITH NO RESIDUAL NOTED AT THIS TIME. NEPRO RUNNING AT 50ML/HR X 20HRS. CALL LIGHT WITHIN REACH. ASPIRATION, FALL AND SAFETY PRECAUTIONS MAINTAINED. WILL CONTINUE TO MONITOR.
--- NOTE | 2021-06-09 20:40 | NUR ---
MS/RN NOTE BLOOD TRANSFUSING AT THIS TIME. PATIENT RECEIVING 1 UNIT PRBC. NO S/SX OF ACTIVE BLEEDING. NO S/SX OF REACTION AT THIS TIME. WILL CONTINUE TO MONITOR.
[2021-06-09] MEDS: ATORVASTATIN 10 MG TABLET GT SCH (21:55)
[2021-06-09] MEDS: INSULIN GLARGINE, 100 UNIT/ML CARTRIDGE SQ SCH (22:47)
--- NOTE | 2021-06-09 23:30 | NUR ---
MS/RN NOTE PATIENT COMPLETED 1 UNIT PRBC WITH NO ADVERSE REACTIONS NOTED. PATIENT CURRENTLY SLEEPING IN BED. WILL CONTINUE TO MONITOR.
--- NOTE | 2021-06-10 06:20 | NUR ---
MS/RN CLOSING NOTE PATIENT CURRENTLY SLEEPING IN BED. ALERT AND ORIENTED X1 - ABLE TO OPEN EYES. NO S/SX OF PAIN NOTED AT THIS TIME. CONTINUES ON O2 3L VIA NC WITH NO S/SX OF RESPIRATORY DISTRESS NOTED. IV ACCESS TO RIGHT UPPER ARM MIDLINE INTACT, PATENT AND SALINE LOCKED. RIGHT UPPER CHEST WALL HD CATH INTACT. CONTINUES ON GTUBE FEED WITH NO RESIDUAL NOTED AT THIS TIME. NEPRO RUNNING AT 50ML/HR X 20HRS. CALL LIGHT WITHIN REACH. ASPIRATION, FALL AND SAFETY PRECAUTIONS MAINTAINED. WILL ENDORSE PLAN OF CARE TO ONCOMING SHIFT.
[2021-06-10] MEDS: BLOOD SUGAR DIAGNOSTIC 1 EACH STRIP VI SCH ×4 (06:39→22:30)
[2021-06-10] MEDS: INSULIN REGULAR, HUMAN 100 UNIT/ML 3 ML VIAL SQ PRN ×2 (06:41→11:55)
[2021-06-10 07:04] LABS: BASOPHILS # (AUTO) 0.1 K/uL (0.0-0.2); BASOPHILS % (AUTO) 0.5 % (0.0-2.0); EOSINOPHILS % (AUTO) 0.8 % (0.0-6.0); HEMATOCRIT 22 % (33-45); HEMOGLOBIN 7.3 g/dL (11.5-14.8); LYMPHOCYTES # (AUTO) 1.4 K/uL (0.8-4.8); LYMPHOCYTES % (AUTO) 11.4 % (20.0-44.0); MEAN CORPUSCULAR HGB CONC 33 g/dl (31.0-36.0); MEAN CORPUSCULAR VOLUME 96 fL (82-100); MONOCYTES # (AUTO) 0.8 K/uL (0.1-1.30); MONOCYTES % (AUTO) 6.4 % (2.0-12.0); NEUTROPHILS # (AUTO) 10.1 K/uL (1.8-8.9); NEUTROPHILS % (AUTO) 80.9 % (43.0-81.0); PLATELET COUNT (AUTO) 270 K/uL (150-450); RED BLOOD CELL COUNT(AUTO) 2.29 MIL/uL (4.0-5.2); WHITE BLOOD COUNT (AUTO) 12.4 K/uL (4.3-11.0)
--- NOTE | 2021-06-10 07:10 | NUR ---
RN OPENING NOTE RECEIVED PATIENT IN BED. A/O X1. NON VERBAL, OPENS EYES. ON 02 AT 3 LPM VIA NC. NO SOB NOTED. NO S/S OF RESPIRATORY DISTRESS. IV ACCESS ON SADIA MIDLINE, INTACT AND PATENT. RCW HD CATH C/D/I. GT NEPRO IS CURRENTLY OFF, WILL CONTINUE AT 11 AM ORDERED. SAFETY MEASURES MAINTAINED. BED IN LOWEST POSITION, BRAKES LOCKED. SIDE RAILS UP X2. CALL LIGHT WITHIN REACH. WILL CONTINUE PLAN OF CARE.
[2021-06-10 08:00] VITALS: BP 99/56
[2021-06-10 08:01] LABS: ALBUMIN 1.6 g/dL (3.4-5.0); BILIRUBIN,TOTAL 0.2 mg/dL (0.2-1.0); CALCIUM, SERUM 9.7 mg/dL (8.5-10.1); CREATININE 4.2 mg/dL (0.6-1.3); MAGNESIUM 3.3 mg/dL (1.8-2.4); PHOSPHORUS 4.1 mg/dL (2.5-4.9); POTASSIUM 4.6 mmol/L (3.5-5.1); TOTAL PROTEIN, SERUM 5.8 g/dL (6.4-8.2)
[2021-06-10] MEDS: CALCIUM CARBONATE 500 MG TAB.CHEW GT SCH ×2 (08:35→17:18)
[2021-06-10] MEDS: LEVETIRACETAM SOL (5 ML) 100 MG/ML UDC GT SCH ×2 (08:35→21:12)
[2021-06-10] MEDS: LIOTHYRONINE SODIUM (25 MCG) 25 MCG TABLET PO SCH (08:35)
[2021-06-10] MEDS: ACIDOPHILUS/BULGARICUS 1 EACH TAB.CHEW GT SCH ×2 (08:35→17:18)
[2021-06-10] MEDS: ASCORBIC ACID 500 MG TABLET GT SCH (08:35)
[2021-06-10] MEDS: ZINC SULFATE 220 MG CAPSULE GT SCH (08:36)
[2021-06-10] MEDS: MULTIVIT W/MINERALS 1 TAB TABLET PO SCH (08:36)
[2021-06-10] MEDS: LEVOTHYROXINE SODIUM 100 MCG TABLET GT SCH (08:36)
[2021-06-10] MEDS: ASPIRIN 81 MG TAB.CHEW GT SCH (08:36)
[2021-06-10] MEDS: CARBIDOPA/LEVODOPA 25/100 MG 1 UDTAB GT SCH ×3 (08:36→17:18)
[2021-06-10] MEDS: VALPROIC ACID 250 MG/5 ML UDC GT SCH ×2 (08:37→21:12)
[2021-06-10] MEDS: INSULIN LISPRO/ASPART 100 UNIT/ML CARTRIDGE SQ SCH ×3 (08:39→17:21)
[2021-06-10] MEDS: APIXABAN 5 MG TABLET PO SCH ×2 (08:40→17:19)
[2021-06-10] MEDS: TRIHEXYPHENIDYL HCL 2 MG TABLET GT SCH ×2 (08:50→21:11)
[2021-06-10] MEDS: PROSOURCE / PROSTAT (PYXIS) 30 ML UDC GT SCH ×3 (08:51→17:18)
[2021-06-10] MEDS: DAKINS QUARTER STRENGTH (0.125%) 480 ML BOTTLE TOP SCH (08:52)
[2021-06-10] MEDS: AMIODARONE HCL 200 MG TABLET GT SCH ×2 (09:00→21:12)
[2021-06-10] MEDS: AMLODIPINE BESYLATE 5 MG TABLET GT SCH (09:00)
[2021-06-10 13:33] LABS: HEMOGLOBIN 7.2 g/dL (11.5-14.8)
--- NOTE | 2021-06-10 14:47 | NUR ---
RN NOTE STRAIGHT CATH WAS INITIATED, NO URINE OUTPUT WAS COLLECTED.
[2021-06-10] MEDS: ALBUMIN 25% 25 GM in PREMIX 1 EA IV PRN (15:26)
[2021-06-10 16:00] VITALS: BP 104/56
[2021-06-10] MEDS: NEPRO 1,000 ML BOTTLE GT PRN (18:04)
--- NOTE | 2021-06-10 18:45 | NUR ---
RN CLOSING NOTE PATIENT IN BED, ASLEEP. A/O X1. NON VERBAL, OPENS EYES. ON 02 AT 3 LPM VIA NC. NO S/S OF RESPIRATORY DISTRESS NOTED. IV ACCESS ON SADIA MIDLINE, INTACT AND PATENT. RCW HD CATH C/D/I. GT NEPRO RUNNING AT 50ML/HR. DUE MEDS GIVEN, ORDERED. SAFETY MEASURES MAINTAINED. BED IN LOWEST POSITION, BRAKES LOCKED, SIDE RAILS UP X2, CALL LIGHT WITHIN REACH. WILL ENDORSE TO ROOM SERVICE FOOD SERVICE ATTENDANT NURSE FOR ADEEL.
--- NOTE | 2021-06-10 19:30 | NUR ---
MS RN OPENING NOTES PATIENT RESTING IN BED, PT IS NON-VERBAL BUT OPENS EYES. PT STABLE ON 3 LPM OF OXYGEN VIA NC, NO S/S OF RESPIRATORY DISTRESS OR SOB NOTED. SADIA MIDLINE INTACT AND FLUSHING WELL, SALINE LOCKED. RIGHT CHEST HD CATH C/D/I. GT FEEDING RUNNING NEPRO AT 50ML/HR. SAFETY MEASURES IN PLACE: CALL LIGHT WITHIN REACH, BED LOCKED IN LOWEST POSITION, BRAKES LOCKED, SIDE RAILS UP X3, BED ALARM ON. WILL CONTINUE TO MONITOR PATIENT
[2021-06-10 20:00] VITALS: BP 115/53
[2021-06-10] MEDS: ATORVASTATIN 10 MG TABLET GT SCH (21:13)
[2021-06-10] MEDS: INSULIN GLARGINE, 100 UNIT/ML CARTRIDGE SQ SCH (22:38)
[2021-06-10] MEDS: *INSULIN REGULAR(HUMULIN R)HUM 100 UNIT/ML VIAL SQ PRN (22:40)
[2021-06-11] MEDS: CEFEPIME 1 GM in IV D5W 50 ML IV SCH ×2 (00:45→23:19)
--- NOTE | 2021-06-11 06:33 | NUR ---
MS RN CLOSING NOTE PATIENT SLEEPING IN BED, APPEARS COMFORTABLE AND NOT IN ANY DISTRESS. PT STABLE ON 3 LPM OF OXYGEN VIA NC, NO S/S OF DISTRESS OR SOB NOTED, BREATHING EVEN AND UNLABORED. NO SIGNIFICANT CHANGES THROUGHOUT SHIFT. MEDICATIONS GIVEN ORDERED, PT NEEDS MET THROUGHOUT SHIFT. GT FEEDING RUNNING NEPRO @ 50 ML/HR. SAFETY MEASURES IN PLACE: CALL LIGHT WITHIN REACH, SIDE RAILS UP X 2, BED LOCKED IN LOW POSITION, BED ALARM ON, HOB ELEVATED. WILL ENDORSE TO DAY SHIFT NURSE FOR CONTINUITY OF CARE
[2021-06-11 06:42] LABS: BASOPHILS % (AUTO) 0.4 % (0.0-2.0); EOSINOPHILS % (AUTO) 0.9 % (0.0-6.0); HEMATOCRIT 22 % (33-45); HEMOGLOBIN 7.4 g/dL (11.5-14.8); LYMPHOCYTES # (AUTO) 1.1 K/uL (0.8-4.8); LYMPHOCYTES % (AUTO) 9.7 % (20.0-44.0); MEAN CORPUSCULAR HGB CONC 34 g/dl (31.0-36.0); MEAN CORPUSCULAR VOLUME 96 fL (82-100); MONOCYTES # (AUTO) 0.6 K/uL (0.1-1.30); MONOCYTES % (AUTO) 5.7 % (2.0-12.0); NEUTROPHILS # (AUTO) 9.1 K/uL (1.8-8.9); NEUTROPHILS % (AUTO) 83.3 % (43.0-81.0); PLATELET COUNT (AUTO) 276 K/uL (150-450); WHITE BLOOD COUNT (AUTO) 10.9 K/uL (4.3-11.0)
[2021-06-11] MEDS: BLOOD SUGAR DIAGNOSTIC 1 EACH STRIP VI SCH ×4 (06:43→22:24)
[2021-06-11] MEDS: INSULIN REGULAR, HUMAN 100 UNIT/ML 3 ML VIAL SQ PRN ×3 (06:45→16:50)
--- NOTE | 2021-06-11 06:59 | NUR ---
MS/RN OPENING NOTE RECEIVED PATIENT SLEEPING IN BED. ALERT AND ORIENTED X1 - ABLE TO OPEN EYES. NO S/SX OF PAIN NOTED AT THIS TIME. PATIENT IS BREATHING EVENLY AND NONLABORED CONTINUES ON O2 3L VIA NC WITH NO S/SX OF RESPIRATORY DISTRESS NOTED. IV ACCESS TO RIGHT UPPER ARM MIDLINE INTACT, PATENT AND SALINE LOCKED. RIGHT UPPER CHEST WALL HD CATH INTACT. CONTINUES ON GTUBE FEED WITH NO RESIDUAL NOTED AT THIS TIME. NEPRO IS PAUSED FOR FOUR HOURS, WILL RECONTINUE @ 1100. CALL LIGHT WITHIN REACH. ASPIRATION, FALL AND SAFETY PRECAUTIONS MAINTAINED. WILL CONTINUE TO MONITOR.
--- NOTE | 2021-06-11 07:00 | NUR ---
MS RN NOTE TURNED OFF GTUBE FEEDING. TO BE TURNED BACK ON AT 1100. ENDORSED TO DAYSMDFT NURSE FOR CONTINUITY OF CARE
[2021-06-11 07:28] LABS: CALCIUM, SERUM 9.1 mg/dL (8.5-10.1); CREATININE 2.9 mg/dL (0.6-1.3); POTASSIUM 4.2 mmol/L (3.5-5.1)
[2021-06-11 08:00] VITALS: BP 110/57
[2021-06-11] MEDS: INSULIN LISPRO/ASPART 100 UNIT/ML CARTRIDGE SQ SCH ×3 (08:12→17:00)
[2021-06-11] MEDS: ACIDOPHILUS/BULGARICUS 1 EACH TAB.CHEW GT SCH ×2 (08:13→16:16)
[2021-06-11] MEDS: APIXABAN 5 MG TABLET PO SCH ×2 (08:13→16:16)
[2021-06-11] MEDS: TRIHEXYPHENIDYL HCL 2 MG TABLET GT SCH ×2 (08:13→21:11)
[2021-06-11] MEDS: AMIODARONE HCL 200 MG TABLET GT SCH ×2 (08:13→21:13)
[2021-06-11] MEDS: LIOTHYRONINE SODIUM (25 MCG) 25 MCG TABLET PO SCH (08:13)
[2021-06-11] MEDS: LEVETIRACETAM SOL (5 ML) 100 MG/ML UDC GT SCH ×2 (08:13→21:11)
[2021-06-11] MEDS: MULTIVIT W/MINERALS 1 TAB TABLET PO SCH (08:14)
[2021-06-11] MEDS: AMLODIPINE BESYLATE 5 MG TABLET GT SCH (08:14)
[2021-06-11] MEDS: CARBIDOPA/LEVODOPA 25/100 MG 1 UDTAB GT SCH ×3 (08:14→16:16)
[2021-06-11] MEDS: LEVOTHYROXINE SODIUM 100 MCG TABLET GT SCH (08:14)
[2021-06-11] MEDS: ASPIRIN 81 MG TAB.CHEW GT SCH (08:14)
[2021-06-11] MEDS: ASCORBIC ACID 500 MG TABLET GT SCH (08:14)
[2021-06-11] MEDS: CALCIUM CARBONATE 500 MG TAB.CHEW GT SCH ×2 (08:14→16:16)
[2021-06-11] MEDS: VALPROIC ACID 250 MG/5 ML UDC GT SCH ×2 (08:15→21:11)
[2021-06-11] MEDS: PROSOURCE / PROSTAT (PYXIS) 30 ML UDC GT SCH ×3 (08:38→16:16)
[2021-06-11] MEDS: ZINC SULFATE 220 MG CAPSULE GT SCH (08:38)
[2021-06-11] MEDS: DAKINS QUARTER STRENGTH (0.125%) 480 ML BOTTLE TOP SCH (08:38)
--- NOTE | 2021-06-11 09:41 | NUR ---
RN NOTE DR NAVARRETE AT BEDSIDE, PATIENT NOTED WITH COUGHING, MD ASSESS, NO NEW ORDERS AT THIS TIME. WILL CONTINUE TO MONITOR
[2021-06-11] MEDS: ALBUTEROL HALF STRENGTH 1.25 MG/3 ML VIAL.NEB NEB SCH ×3 (11:12→20:02)
[2021-06-11] MEDS: VANCOMYCIN 500 MG in IV D5W 100 ML IV PRN (14:36)
--- NOTE | 2021-06-11 14:36 | NUR ---
RN NOTE PER PHARMACY GIVE SARA HOLLIS FROM YESTERDAY, NOW, WILL CONTINUE TO MONITOR
[2021-06-11 16:00] VITALS: BP 112/53
--- NOTE | 2021-06-11 18:20 | NUR ---
RN CLOSING NOTE PATIENT IN BED. A/O X1. REMAINS NON VERBAL, OPENS EYES. ON 02 AT LPM VIA NC. NO SOB NOTED. NO S/S OF RESPIRATORY DISTRESS. IV ACCESS ON SADIA MIDLINE, INTACT AND PATENT. RCW HD CATH C/D/I. GT NEPRO RUNNING X 50 ML/HR. DUE MEDS GIVEN ORDERED. WOUND CARE AND TURNING PERFORMED DURING SHIFT. SAFETY MEASURES MAINTAINED. BED IN LOWEST POSITION, BRAKES LOCKED. SIDE RAILS UP X2. KEPT CALL LIGHT WITHIN REACH. WILL ENDORSE TO ONCOMING SHIFT.
--- NOTE | 2021-06-11 19:20 | NUR ---
OPENING MS RN NOTES PATIENT IN BED. A/O X1. REMAINS NON VERBAL, OPENS EYES. ON 02 AT LPM VIA NC. NO SOB NOTED. NO S/S OF RESPIRATORY DISTRESS. IV ACCESS ON SADIA MIDLINE, INTACT AND PATENT. RCW HD CATH C/D/I. GT NEPRO RUNNING X 50 ML/HR.. SAFETY MEASURES MAINTAINED. BED IN LOWEST POSITION, BRAKES LOCKED. SIDE RAILS UP X2. KEPT CALL LIGHT WITHIN REACH. WILL CONTINUE TO MONITOR.
[2021-06-11 20:00] VITALS: BP 103/58
[2021-06-11] MEDS: ATORVASTATIN 10 MG TABLET GT SCH (21:11)
[2021-06-11] MEDS: *INSULIN REGULAR(HUMULIN R)HUM 100 UNIT/ML VIAL SQ PRN (22:25)
[2021-06-11] MEDS: INSULIN GLARGINE, 100 UNIT/ML CARTRIDGE SQ SCH (22:26)
[2021-06-11] MEDS: NEPRO 1,000 ML BOTTLE GT PRN (22:30)
[2021-06-12] MEDS: ALBUTEROL HALF STRENGTH 1.25 MG/3 ML VIAL.NEB NEB SCH ×6 (00:13→15:48)
[2021-06-12] MEDS: INSULIN REGULAR, HUMAN 100 UNIT/ML 3 ML VIAL SQ PRN ×2 (06:38→12:08)
--- NOTE | 2021-06-12 06:51 | NUR ---
RN NOTES PATIENT IN BED. A/O X1. REMAINS NON VERBAL, OPENS EYES. ON 3 AT LPM VIA NC. NO SOB NOTED. NO S/S OF RESPIRATORY DISTRESS. IV ACCESS ON SADIA MIDLINE, INTACT AND PATENT. RCW HD CATH C/D/I. GT NEPRO RUNNING X 50 ML/HR. STOPPED AT 0700 TO RESUME AT 1100 SAFETY MEASURES MAINTAINED. ALL DUE MEDS GIVEN AND TOLERATED WELL.BED IN LOWEST POSITION, BRAKES LOCKED. SIDE RAILS UP X2. KEPT CALL LIGHT WITHIN REACH. WILL ENDORSE CARE TO DAY SHIFT NURSE.
[2021-06-12] MEDS: BLOOD SUGAR DIAGNOSTIC 1 EACH STRIP VI SCH ×2 (06:54→12:03)
--- NOTE | 2021-06-12 07:30 | NUR ---
MS RN OPENING NOTES RECEIVED PT IN BED ASLEEP, NOT IN ANY FORM OF DISTRESS.A/O X 1,NON-VERBAL.ON GTF OF NEPRO AT 50ML/HR,TOLERATED WELL.ON O2 INH AT 3 LPM VIA NASAL CANNULA.INCONTINENT OF BOTH BOWEL AND BLADDER,KEPT DRY AND COMFORTABLE.ON ACCU CHECK ORDERED.SCHEDULED FOR HD TODAY.WE WILL CONTINUE TO MONITOR
[2021-06-12 08:00] VITALS: BP 137/61
[2021-06-12] MEDS: ZINC SULFATE 220 MG CAPSULE GT SCH (08:36)
[2021-06-12] MEDS: LEVOTHYROXINE SODIUM 100 MCG TABLET GT SCH (08:36)
[2021-06-12] MEDS: LIOTHYRONINE SODIUM (25 MCG) 25 MCG TABLET PO SCH (08:37)
[2021-06-12] MEDS: MULTIVIT W/MINERALS 1 TAB TABLET PO SCH (08:37)
[2021-06-12] MEDS: AMLODIPINE BESYLATE 5 MG TABLET GT SCH (08:37)
[2021-06-12] MEDS: TRIHEXYPHENIDYL HCL 2 MG TABLET GT SCH (08:37)
[2021-06-12] MEDS: ACIDOPHILUS/BULGARICUS 1 EACH TAB.CHEW GT SCH (08:37)
[2021-06-12] MEDS: LEVETIRACETAM SOL (5 ML) 100 MG/ML UDC GT SCH (08:37)
[2021-06-12] MEDS: CALCIUM CARBONATE 500 MG TAB.CHEW GT SCH (08:37)
[2021-06-12] MEDS: ASPIRIN 81 MG TAB.CHEW GT SCH (08:37)
[2021-06-12] MEDS: CARBIDOPA/LEVODOPA 25/100 MG 1 UDTAB GT SCH ×2 (08:37→12:12)
[2021-06-12] MEDS: ASCORBIC ACID 500 MG TABLET GT SCH (08:37)
[2021-06-12] MEDS: VALPROIC ACID 250 MG/5 ML UDC GT SCH (08:37)
[2021-06-12 08:38] VITALS: BP 137/61
[2021-06-12] MEDS: AMIODARONE HCL 200 MG TABLET GT SCH (08:38)
[2021-06-12] MEDS: APIXABAN 5 MG TABLET PO SCH (08:38)
--- NOTE | 2021-06-12 08:38 | NUR ---
rn notes hgb 7.4 hct 22 eliquis 5mg 1 roger not administered.will continue to monitor.
[2021-06-12] MEDS: INSULIN LISPRO/ASPART 100 UNIT/ML CARTRIDGE SQ SCH ×2 (09:42→12:12)
[2021-06-12] MEDS: PROSOURCE / PROSTAT (PYXIS) 30 ML UDC GT SCH ×2 (09:43→12:12)
[2021-06-12] MEDS: DAKINS QUARTER STRENGTH (0.125%) 480 ML BOTTLE TOP SCH (09:43)
[2021-06-12] MEDS ORDERED: ALBUMIN 25% 25 GM in PREMIX 1 EA IV PRN (11:00)
[2021-06-12] MEDS: ALBUMIN 25% 25 GM in PREMIX 1 EA IV PRN (11:33)
[2021-06-12 11:40] LABS: BASOPHILS % (AUTO) 0.2 % (0.0-2.0); EOSINOPHILS % (AUTO) 0.5 % (0.0-6.0); HEMATOCRIT 24 % (33-45); HEMOGLOBIN 7.8 g/dL (11.5-14.8); LYMPHOCYTES # (AUTO) 1.3 K/uL (0.8-4.8); LYMPHOCYTES % (AUTO) 9.8 % (20.0-44.0); MEAN CORPUSCULAR HGB CONC 33 g/dl (31.0-36.0); MEAN CORPUSCULAR VOLUME 97 fL (82-100); MONOCYTES # (AUTO) 0.5 K/uL (0.1-1.30); MONOCYTES % (AUTO) 3.7 % (2.0-12.0); NEUTROPHILS # (AUTO) 11.5 K/uL (1.8-8.9); NEUTROPHILS % (AUTO) 85.8 % (43.0-81.0); PLATELET COUNT (AUTO) 224 K/uL (150-450); RED BLOOD CELL COUNT(AUTO) 2.45 MIL/uL (4.0-5.2); WHITE BLOOD COUNT (AUTO) 13.4 K/uL (4.3-11.0)
--- NOTE | 2021-06-12 16:22 | NUR ---
RN NOTES PATIENT IS ALERT AND ORIENTEDX1. PATIENT IS ON 3L OXYGEN SATURATION 98%. PATIENT IN NO APPARENT RESPIRATORY DISTRESS NOTED. NO SIGN AND SYMPTOM OF PAIN NOTED AT THIS TIME. DISCHARGED INSTRUCTION AND REPORT WAS GIVEN TO MISTI SNELL AT [facility]. PATIENT LEFT THE HOSPITAL IN MEDICALLY STABLE CONDITION, PASSENGER RATE CLERK BY 2 EMT VIA AMBULANCE.
== END 2021-06-12 16:22 | DRG 853 ==
LOC: ER 14:59 → TELE1 18:07 → MEDSG1 06-04 08:41 → MED 06-04 23:23
PROVIDERS: ADMIT Internal Medicine; ATTEND Internal Medicine
PROC: 5A1D70Z Performance of Urinary Filtration, Intermittent, Less than 6 Hours Per Day (ICD-10-PCS; 2021-06-01)
PROC: 05H533Z Insertion of Infusion Device into Right Subclavian Vein, Percutaneous Approach (ICD-10-PCS; 2021-06-02)
PROC: B546ZZA Ultrasonography of Right Subclavian Vein, Guidance (ICD-10-PCS; 2021-06-02)
PROC: 0W9B3ZZ Drainage of Left Pleural Cavity, Percutaneous Approach (ICD-10-PCS; 2021-06-03)
PROC: 0QB10ZZ Excision of Sacrum, Open Approach (ICD-10-PCS; principal; 2021-06-04)
PROC: 30233N1 Transfusion of Nonautologous Red Blood Cells into Peripheral Vein, Percutaneous Approach (ICD-10-PCS; 2021-06-09)
DX: A41.9 Sepsis, unspecified organism (principal); L89.154 Pressure ulcer of sacral region, stage 4; N18.6 End stage renal disease; J18.9 Pneumonia, unspecified organism; N39.0 Urinary tract infection, site not specified; I13.2 Hypertensive heart and chronic kidney disease with heart failure and with stage 5 chronic kidney disease, or end stage renal disease; I50.32 Chronic diastolic (congestive) heart failure; D68.59 Other primary thrombophilia; M46.28 Osteomyelitis of vertebra, sacral and sacrococcygeal region; I31.3 Pericardial effusion (noninflammatory); G93.40 Encephalopathy, unspecified; I95.9 Hypotension, unspecified; E11.22 Type 2 diabetes mellitus with diabetic chronic kidney disease; G40.909 Epilepsy, unspecified, not intractable, without status epilepticus; Z79.84 Long term (current) use of oral hypoglycemic drugs; Z99.2 Dependence on renal dialysis; Z79.4 Long term (current) use of insulin; D63.1 Anemia in chronic kidney disease; E78.5 Hyperlipidemia, unspecified; R13.10 Dysphagia, unspecified; Z93.1 Gastrostomy status; Z79.01 Long term (current) use of anticoagulants; Z79.82 Long term (current) use of aspirin; Z79.890 Hormone replacement therapy; I48.91 Unspecified atrial fibrillation; F03.90 Unspecified dementia, unspecified severity, without behavioral disturbance, psychotic disturbance, mood disturbance, and anxiety; E83.9 Disorder of mineral metabolism, unspecified; Z88.0 Allergy status to penicillin; L89.626 Pressure-induced deep tissue damage of left heel; L89.616 Pressure-induced deep tissue damage of right heel; I95.3 Hypotension of hemodialysis; E11.69 Type 2 diabetes mellitus with other specified complication; G20 Parkinson's disease; F02.80 Dementia in other diseases classified elsewhere, unspecified severity, without behavioral disturbance, psychotic disturbance, mood disturbance, and anxiety; B96.89 Other specified bacterial agents as the cause of diseases classified elsewhere; B96.4 Proteus (mirabilis) (morganii) as the cause of diseases classified elsewhere; Z20.822 Contact with and (suspected) exposure to COVID-19
CPT/HCPCS: 36415; 36600; 71045-TC; 71250-TC; 80048-TC; 80053-TC; 80076-TC; 80164-TC; 80202-TC; 81001; 82728-TC; 82803-TC; 82962-TC; 83036; 83540-TC; 83605-TC; 83735-TC; 83880; 84100-TC; 84155-TC; 84436-TC; 84439-TC; 84443-TC; 84480; 84481; 84484-TC; 85025-TC; 85027-TC; 85730-TC; 86706; 86850-TC; 87040-TC; 87070-TC; 87075-TC; 87081-TC; 87102-TC; 87186-TC; 87340; 89051-TC; 90935-TC; 93307-TC; 94799-TC; A4216; A4217; A6253; A6403; C9803; G0378; J0692; J0885; J1644; J1815; J1953; J2185; J3370; J3490; J7030; J7050; J7060; P9016; P9047